=== PATIENT | female | born 1975 | race Caucasian/White ===

== ENCOUNTER 2017-05-30 22:00 | Emergency (ER) | payer MEDICAID ==
[~2017-05-30] VITALS: Ht 170.2 cm; Wt 74.8 kg
[~2017-05-30 22:00] MED LIST: ASCO-262 PO; CHOL200014 PO; CITA10TA7 PO; CLON1TAB3 PO; CPR500T PO; EST.625T PO; HCT25T PO; HYDR-757 PO; HYDR25CA5 PO; LACT10SO46 PO; LEVO5TAB12 PO; LINA290C PO; LORA1TAB PO; LOXA10CA PO; NAPR-243 PO; NAPR220C11 PO; OMEP40CA36 PO; POLY17PO23 PO; PRD20T PO; RANI300T4 PO; SENN8.6T7 PO; SIMV20TA3 PO; SULF1TAB35 PO; TRAM50TA2 PO; TRAZ150T42 PO; TRIM100T PO
--- OUTSIDE RECORDS SUMMARY | 2017-05-30 22:06 | XMS REPORT ---
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.00 Active Problem Major depressive disorder, recurrent episode, moderate 296.32 Active Problem Generalized anxiety disorder 300.02 Active Problem Encounter for long-term (current) use of other medications V58.69 Active Problem Unspecified disorder of skin and subcutaneous tissue 709.9 Active Problem 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 041.81 Active Problem Dysuria 788.1 Active Problem Unspecified constipation 564.00 Active Problem 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 Problem Viral warts, unspecified 078.10 Active Problem Herpes zoster without mention of complication 053.9 Active Problem Esophageal reflux 530.81 Active Problem Postmenopausal atrophic vaginitis 627.3 Active Problem Irritable bowel syndrome 564.1 Active Problem Unspecified backache 724.5 Active Problem Cervicalgia 723.1 Active Problem Unspecified psychosis 298.9 Active Problem Depressive disorder, not elsewhere classified 311 Active Problem Hallux valgus (acquired) 735.0 Active Problem Other chronic pain 338.29 Active Problem Hypertension 401.9 Active Problem Pain in joint, pelvic region and thigh 719.45 Active Problem Posttraumatic stress disorder 309.81 Active Problem Unspecified chronic bronchitis 491.9 Active Problem Unspecified hearing loss 389.9 Active Problem Attention deficit disorder of childhood with hyperactivity 314.01 Active Problem Counseling on substance use and abuse V65.42 Active Problem Disorder of bone and cartilage, unspecified 733.90 Active Problem Dysfunction of Eustachian tube 381.81 Active Problem Pain in joint, hand 719.44 Active Problem Paralytic ileus 560.1 Active Problem Anxiety state, unspecified 300.00 Active Problem Enthesopathy of hip region 726.5 Active Problem Other, multiple, and unspecified sites, insect bite, nonvenomous, without mention of infection 919.4 Active Problem Dermatophytosis of nail 110.1 Active Medications No Known Medications Results No Known Results Summary Purpose eClinicalWorks Submission
--- OUTSIDE RECORDS SUMMARY | 2017-05-30 22:06 | XMS REPORT ---
Author LEFTY Pyle Organization eClinicalWorks Address Unknown Phone Unavailable Care Team Providers Care Languages And Literature Instructor Name Role Phone LEFTY WAY CP Unavailable Allergies No Known Allergies Problems Problem Type Condition Code Onset Dates Condition Status Problem Gastroesophageal reflux disease with esophagitis K21.0 Active Problem Chronic constipation K59.00 Active Problem Essential hypertension I10 Active Problem Hemoptysis R04.2 Active Problem Right hip pain M25.551 Active Problem Upper respiratory infection, acute J06.9 Active Problem Sebaceous cyst L72.3 Active Problem Skin tag L91.8 Active Problem Left hip pain M25.552 Active Problem Allergic rhinitis J30.9 Active Problem Post menopausal syndrome Z78.0 Active Problem Verruca B07.9 Active Problem Tobacco dependence F17.200 Active Assessment Hypokalemia E87.6 Active Problem Mixed hyperlipidemia E78.2 Active Medications No Known Medications Results No Known Results Summary Purpose eClinicalWorks Submission
--- OUTSIDE RECORDS SUMMARY | 2017-05-30 22:06 | XMS REPORT | Clinical Summary ---
Author Author [facility] Organization [facility] Address Unknown Phone Unavailable Care Team Providers Care Coal Chute Worker Name Role Phone PCP Unavailable Source Comments Some departments are not documenting in the electronic medical record. If you do not see the information that you expected, contact Release of Information in the Health Information Management department at [phone] for further assistance in locating additional records.[facility] Allergies Active Allergy Reactions Severity Noted Date Comments Nitrofurantoin HIVES, RASH Medium 11/28/2014 Monohyd/M-Cryst Current Medications Prescription Sig. Disp. Refills Start End Date Status Date HYDROcodone/acetaminophen Take 1 Tab by mouth every Active (NORCO; VICODIN) 5-325 mg 4 hours as needed. tablet trimethoprim (TRIMPEX) Take 100 mg by mouth. Active 100 mg tablet amphetamine-dextroampheta Take 20 mg by mouth every Active mine XR (ADDERALL XR) 20 morning mg capsule estrogens, conjugated Take 0.625 mg by mouth Active (PREMARIN) 0.625 mg daily. tablet senna (SENOKOT) 8.6 mg Take 2 Tabs by mouth at Active tablet bedtime daily. lactulose 10 gram/15 mL Take 20 g by mouth as Active oral solution Needed. DULoxetine DR (CYMBALTA) Take 20 mg by mouth Active 20 mg capsule daily. hydrOXYzine (ATARAX) 25 Take 25 mg by mouth three Active mg tablet times daily as needed. levalbuterol (XOPENEX) Inhale 1.25 mg solution Active 1.25 mg/3 mL nebulizer as directed three times solution daily as needed. TENS unit electrodes pads Use as directed. Active tiZANidine (ZANAFLEX) 2 Take 2 mg by mouth three Active mg tablet times daily. docusate (COLACE) 100 mg Take 100 mg by mouth Active capsule twice daily. polyethylene glycol 3350 Take 17 g by mouth daily. Active (GLYCOLAX; MIRALAX) 17 gram/dose powder simvastatin (ZOCOR) 20 mg Take 20 mg by mouth at Active tablet bedtime daily. hydrochlorothiazide Take 12.5 mg by mouth Active (HYDRODIURIL) 12.5 mg daily. capsule indomethacin (INDOCIN) 25 Take 50 mg by mouth three Active mg capsule times daily. Levocetirizine (XYZAL) 5 Take by mouth. Active mg tab cholecalciferol (Vitamin Take 1,000 Units by mouth Active D3) (VITAMIN D-3) 1,[address] daily. units tablet omeprazole DR(+) Take 40 mg by mouth twice Active (PRILOSEC) 40 mg capsule daily. linaclotide (LINZESS) 290 Take 1 Cap by mouth 30 Cap 5 01/04/20 Active mcg cap daily. 15 Active Problems Problem Noted Date GERD (gastroesophageal reflux disease) 01/10/2015 S/P Rosa Elena fundoplication (without gastrostomy tube) procedure 01/10/2015 Slipped Rosa Elena fundoplication 01/10/2015 Social History Tobacco Use Types Packs/Day Years Used Date Former Smoker Alcohol Use Drinks/Week oz/Week Comments No Sex Assigned at Date Recorded Not on file Last Filed Vital Signs Vital Sign Reading Time Taken Blood Pressure 127/86 01/10/2015 2:23 PM CDT Pulse 96 01/10/2015 2:23 PM CDT Temperature 36.6 C (97.9 F) 01/10/2015 2:23 PM CDT Respiratory Rate 18 01/10/2015 2:23 PM CDT Oxygen Saturation 99% 12/29/2014 12:28 PM CDT Inhaled Oxygen - - Concentration Weight 72.6 kg (160 lb) 01/10/2015 2:23 PM CDT Height 170.2 cm (5' 7") 01/10/2015 2:23 PM CDT Body Mass Index 25.06 01/10/2015 2:23 PM CDT Plan of Treatment Health Maintenance Due Date Last Done Comments PHYSICAL (COMPREHENSIVE) 1980 EXAM PERTUSSIS VACCINE 1984 TETANUS VACCINE 1990 CERVICAL CANCER SCREENING 2003 BREAST CANCER SCREENING 2013 INFLUENZA VACCINE 05/23/2017 Results Not on filefrom Last 3 Months
--- OUTSIDE RECORDS SUMMARY | 2017-05-30 22:06 | XMS REPORT ---
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 Active Assessment Attention deficit disorder F90.0 Active Assessment Anxiety disorder, unspecified F41.9 Active Problem Essential hypertension I10 Active Problem Gastroesophageal reflux disease with esophagitis K21.0 Active Problem Chronic constipation K59.00 Active Problem Verruca B07.9 Active Problem Post menopausal syndrome Z78.0 Active Problem Mixed hyperlipidemia E78.2 Active Problem Tobacco dependence F17.200 Active Medications Medication Code System Code Instructions Start Date End Date Status Dosage Simvastatin [facility] [address]-91 20 MG Orally Once a day December 12, 2014 1 tablet by Oral route 1 time per day Xopenex [facility] [address]-29 1.25 mg/3 mL Oct 24, 2014 inhale 1 Vial by NEBULIZATION route every 8 hours PRN cough or wheezing Vitamin D3 [facility] 21677-[address]83 1,000 unit Jun 30, 2014 2 capsule by Oral route 1 time per day 2000 units daily Generlac [facility] [address]-58 10 GM/15ML Orally Once a day PRN severe constipation 15 ml Senna [facility] [address]-09 8.6 MG Nov 11, 2014 1 Tablet by Oral route 2 times per day Prilosec [facility] [address]-42 40 mg oral daily December 12, 2014 1 capsule by Oral route 1 time per day Trimethoprim [facility] [address]-97 100 mg March 24, 2012 1 Tablet by Oral route 1 time per day Cymbalta [facility] [address]-91 20 MG Orally Once a day Jul 21, 2015 1 capsule Clonazepam [facility] [address]-02 1 MG Orally 1/2 tablet in am and 1 tablet at bedtime as needed Oct 18, 2015 as directed Walker [facility] 0 Apr 27, 2014 CHRONIC PAIN LIMITING MOBILITY Adderall [facility] [address]-55 20 MG Orally 2 times a day for ADHD Dr Paul to sign for Slade December 05, 2014 1 tablet Hydrochlorothiazide [facility] [address]-07 12.5 MG Orally Once a day 1 capsule Xyzal [facility] [address]-87 5 MG Jul 14, 2014 1 Tablet by Oral route 1 time per day Procedures Procedure Coding System Code Date Office Visit, Est Pt., Level 3 CPT-4 42646 Oct 18, 2015 Vital Signs Date/Time: Oct 18, 2015 Cardiac Monitoring Heart Rate 104 bpm Weight 158.0 lbs Height 67 in BMI 24.74 Index Blood Pressure Diastolic 80 mmHg Blood Pressure Systolic 118 mmHg Results No Known Results Summary Purpose eClinicalWorks Submission
--- OUTSIDE RECORDS SUMMARY | 2017-05-30 22:07 | XMS REPORT ---
Author LEFTY Pyle Organization eClinicalWorks Address Unknown Phone Unavailable Care Team Providers Care Cost Recovery Technician Name Role Phone LEFTY WAY CP Unavailable Allergies No Known Allergies Problems Problem Type Condition Code Onset Dates Condition Status Problem Chronic constipation K59.00 Active Problem Sebaceous cyst L72.3 Active Problem Skin tag L91.8 Active Problem Closed displaced fracture of neck of right radius with mal union_ , subsequent encounter S52.131P Active Problem Upper respiratory infection, acute J06.9 Active Problem Tobacco abuse Z72.0 Active Problem Left hip pain M25.552 Active Problem Allergic rhinitis J30.9 Active Problem Hemoptysis R04.2 Active Problem Right hip pain M25.551 Active Problem Tobacco dependence F17.200 Active Problem Mixed hyperlipidemia E78.2 Active Problem Post menopausal syndrome Z78.0 Active Problem Gastroesophageal reflux disease with esophagitis K21.0 Active Problem Verruca B07.9 Active Problem Essential hypertension I10 Active Medications No Known Medications Results No Known Results Summary Purpose eClinicalWorks Submission
--- OUTSIDE RECORDS SUMMARY | 2017-05-30 22:07 | XMS REPORT ---
Author LEFTY Pyle Organization eClinicalWorks Address Unknown Phone Unavailable Care Team Providers Care Kiln Firer Name Role Phone LEFTY WAY CP Unavailable [...] Active Problem Essential hypertension I10 Active Medications Medication Code System Code Instructions Start Date End Date Status Dosage Simvastatin [facility] [address]-58 20 mg Orally Once a day 1 tablet by Oral route 1 time per day Xyzal [facility] [address]-89 5 mg oral daily Jul 14, 2014 1 Tablet Results No Known Results Summary Purpose eClinicalWorks Submission
--- OUTSIDE RECORDS SUMMARY | 2017-05-30 22:07 | XMS REPORT ---
Author Author LEFTY WAY [facility] eClinicalWorks Address Unknown Phone Unavailable Care Team Providers Care Foundation Director Name Role Phone LEFTY WAY CP Unavailable Allergies No Known Allergies Problems Problem Type Condition ICD-9 Code Onset Dates Condition Status Problem Attention [...] Problem Dermatophytosis of nail 110.1 Active Medications Medication Code System Code Instructions Start Date End Date Status Dosage Premarin [facility] [address]-13 0.625 MG remocean Appt needed for futher refills. Nov 11, 2014 1 tablet by Oral route 1 time per day Results No Known Results Summary Purpose eClinicalWorks Submission
--- OUTSIDE RECORDS SUMMARY | 2017-05-30 22:07 | XMS REPORT ---
Author LEFTY Pyle Organization eClinicalWorks Address Unknown Phone Unavailable Care Team Providers Care Product Marketing Analyst Name Role Phone LEFTY WAY CP Unavailable [...] Instructions Start Date End Date Status Dosage Zithromax Z-Octavio [facility] [address]-17 250 MG Orally Once a day Jul 08, 2016 Jul 13, 2016 2 tablets on the first day, then 1 tablet daily for 4 days Results No Known Results Summary Purpose eClinicalWorks Submission
--- OUTSIDE RECORDS SUMMARY | 2017-05-30 22:07 | XMS REPORT ---
Author Author LEFTY WAY Organization [facility] Address [address] [place] [address] Care Team Providers Care Owner Consulting Engineer Name Role Phone LEFTY WAY Unavailable PROBLEMS Type Condition ICD9-CM Code [id number] Code Onset Dates Condition Status SNOMED Code Problem Skin tag L91.8 Active 546909350 Problem Allergic rhinitis J30.9 Active 72054671 Problem Sebaceous cyst L72.3 Active 823910545 Problem Tobacco abuse Z72.0 Active 685326965 Problem Closed displaced fracture of neck of right radius with mal union_ , subsequent encounter S52.131P Active 60781992 Problem Right hip pain M25.551 Active 756141371766432 Problem Left hip pain M25.552 Active 72231373 Problem Upper respiratory infection, acute J06.9 Active 18903439 Problem Hemoptysis R04.2 Active 80934953 Problem Post menopausal syndrome Z78.0 Active 07595210 Problem Mixed hyperlipidemia E78.2 Active 185779205 Problem Gastroesophageal reflux disease with esophagitis K21.0 Active 817179440 Problem Verruca B07.9 Active 36157652 Problem Essential hypertension I10 Active 50001387 Problem Tobacco dependence F17.200 Active 33006928 Problem Chronic constipation K59.00 Active 147947862 ALLERGIES Unknown Allergies SOCIAL HISTORY No smoking Hx information available PLAN OF CARE VITAL SIGNS MEDICATIONS Unknown Medications RESULTS No Results PROCEDURES No Known procedures IMMUNIZATIONS No Known Immunizations
--- OUTSIDE RECORDS SUMMARY | 2017-05-30 22:07 | XMS REPORT ---
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 Active Problem Post menopausal syndrome Z78.0 Active Problem Verruca B07.9 Active Assessment Attention deficit disorder F90.0 Active Problem Tobacco dependence F17.200 Active Assessment Anxiety disorder, unspecified F41.9 Active Problem Mixed hyperlipidemia E78.2 Active Medications Medication Code System Code Instructions Start Date End Date Status Dosage Vitamin D3 [facility] [address]-85450 1,000 unit Jun 30, 2014 2 capsule by Oral route 1 time per day 2000 units daily Senna [facility] [address]-73 8.6 MG orally bid prn Nov 11, 2014 1 Tablet by Oral route 2 times per day prn Vitamin C & D3/Nini Hips [facility] [address]307 500-1000-20 MG-UNIT-MG Orally not defined Trimethoprim [facility] [address]-86 100 mg March 24, 2012 1 Tablet by Oral route 1 time per day Generlac [facility] [address]-62 10 GM/15ML Orally Once a day PRN severe constipation 15 ml Citalopram Hydrobromide [facility] [address]-84 10 MG Orally Once a day May 20, 2016 1 tablet Clonazepam [facility] [address]-76 1 MG Orally in am and 1 tablet at bedtime as needed Oct 18, 2015 1/2 tablet Xyzal [facility] [address]-71 5 MG oral daily Jul 14, 2014 1 Tablet Simvastatin [facility] [address]-60 20 MG Orally Once a day 1 tablet by Oral route 1 time per day Hydrochlorothiazide [facility] [address]-50 25 mg Orally Once a day 1 capsule Prilosec [facility] [address]-46 40 mg oral daily 1 capsule by Oral route 1 time per day Tizanidine HCl [facility] [address]-44 2 MG Orally every 8 hrs 1 tablet as needed Loxapine Succinate [facility] [address]-94 10 MG Orally once a day May 20, 2016 1 capsule Procedures Procedure Coding System Code Date MH Office Visit, Est Pt., Level 3 CPT-4 77949 May 20, 2016 Vital Signs Date/Time: May 20, 2016 Cardiac Monitoring Heart Rate 88 bpm Weight 156.2 lbs Height 67 in BMI 24.46 Index Blood Pressure Diastolic 82 mmHg Blood Pressure Systolic 127 mmHg Results No Known Results Summary Purpose eClinicalWorks Submission
--- OUTSIDE RECORDS SUMMARY | 2017-05-30 22:07 | XMS REPORT ---
Author Author ARNOLD ANDREA Organization eClinicalWorks Address Unknown Phone Unavailable Care Team Providers Care Dentistry Professor Name Role Phone ARNOLD ANDREA CP Unavailable Allergies No Known Allergies Problems Problem Type Condition Code Onset Dates Condition Status Problem Essential hypertension I10 Active Problem Gastroesophageal reflux disease with esophagitis K21.0 Active Problem Chronic constipation K59.00 Active Problem Verruca B07.9 Active Problem Post menopausal syndrome Z78.0 Active Problem Mixed hyperlipidemia E78.2 Active Problem Tobacco dependence F17.200 Active Medications Medication Code System Code Instructions Start Date End Date Status Dosage Adderall [facility] [address]-39 20 MG Orally 2 times a day for ADHD Dorothy to sign for Slade December 05, 2014 1 tablet Results No Known Results Summary Purpose eClinicalWorks Submission
--- OUTSIDE RECORDS SUMMARY | 2017-05-30 22:07 | XMS REPORT ---
Author Author LEFTY WAY [facility] eClinicalWorks Address Unknown Phone Unavailable Care Team Providers Care Automobile Spring Repairer Name Role Phone LEFTY WAY CP Unavailable [...] disorder of childhood with hyperactivity 314.01 Active Assessment Change in mental status 780.97 Active Problem Counseling on substance use and [...]
--- OUTSIDE RECORDS SUMMARY | 2017-05-30 22:07 | XMS REPORT ---
Author Author LEFTY WAY [facility] eClinicalWorks Address Unknown Phone Unavailable Care Team Providers Care Mall Manager Name Role Phone LEFTY WAY CP Unavailable Allergies, Adverse Reactions, Alerts Substance Reaction Event Type Zoloft nausea Drug Allergy Strattera hives, sleep walking Drug Allergy Macrobid hives Drug Allergy Problems Problem Type Condition Code Onset Dates Condition Status Assessment Gastroesophageal reflux disease with esophagitis K21.0 Active Assessment Chronic constipation K59.00 Active Assessment Essential hypertension I10 Active Problem Essential hypertension I10 Active Problem Gastroesophageal reflux disease with esophagitis K21.0 Active Problem Chronic constipation K59.00 Active Problem Verruca B07.9 Active Problem Post menopausal syndrome Z78.0 Active Problem Mixed hyperlipidemia E78.2 Active Problem Tobacco dependence F17.200 Active Assessment Post menopausal syndrome Z78.0 Active Assessment Verruca B07.9 Active Assessment Tobacco dependence F17.200 Active Assessment Hip pain, right M25.551 Active Assessment Mixed hyperlipidemia E78.2 Active Medications Medication Code System Code Instructions Start Date End Date Status Dosage Clonazepam [facility] [address]-40 1 MG Orally Twice a day Jul 21, 2015 1/ 2 tablet BL Nicotine ND 0 11 MG/24HR Transdermal Once a day Sep 06, 2015 as directed Colace [facility] [address]-05 100 mg Sep 21, 2014 1 capsule by Oral route 2 times per day PRN Xyzal [facility] [address]-14 5 MG Jul 14, 2014 1 Tablet by Oral route 1 time per day Senna [facility] [address]-62 8.6 mg Nov 11, 2014 1 Tablet by Oral route 2 times per day Walker [facility] 0 Apr 27, 2014 CHRONIC PAIN LIMITING MOBILITY Linzess [facility] [address]-50 290 MCG Orally Once a day Sep 16, 2015 1 capsule Prilosec [facility] [address]-22 40 mg oral daily December 12, 2014 1 capsule by Oral route 1 time per day Diclofenac Sodium [facility] [address]-65 75 MG Orally bid Sep 06, 2015 Nov 05, 2015 1 tablet Trimethoprim [facility] [address]-78 100 mg March 24, 2012 1 Tablet by Oral route 1 time per day Vitamin D3 [facility] 38809-[address]51 1,000 unit Jun 30, 2014 2 capsule by Oral route 1 time per day 2000 units daily Cymbalta [facility] [address]-79 20 MG Orally Once a day Jul 21, 2015 1 capsule Simvastatin [facility] [address]-50 20 MG Orally Once a day December 12, 2014 1 tablet by Oral route 1 time per day Hydrochlorothiazide [facility] [address]-00 12.5 MG Orally Once a day 1 capsule Procedures Procedure Coding System Code Date ASSAY THYROID STIM HORMONE CPT-4 24912 Sep 06, 2015 LIPID PANEL CPT-4 76901 Sep 06, 2015 COMPREHEN METABOLIC PANEL CPT-4 84452 Sep 06, 2015 CRYOTHERAPY OF SKIN CPT-4 34720 Sep 06, 2015 COMPLETE CBC W/AUTO DIFF WBC CPT-4 19368 Sep 06, 2015 VENIPUNCT, ROUTINE* CPT-4 68376 Sep 06, 2015 Office Visit, Est Pt., Level 4 CPT-4 33198 Sep 06, 2015 Vital Signs Date/Time: Sep 06, 2015 Temperature 97.7 F Weight 155.0 lbs Height 67 in BMI 24.27 Index Blood Pressure Diastolic 86 mmHg Blood Pressure Systolic 126 mmHg Cardiac Monitoring Heart Rate 76 bpm Results Name Result Date Reference Range Unit Abnormality Flag TSH ----TSH 2.040 [id number] 0.450-4.500 uIU/mL CBC ----Basos 1 14338542 % ----MCV 89 89438803 79-97 fL ----Hematocrit 42.2 34580560 34.0-46.6 % ----Eos 1 40366146 % ----MCHC 34.4 01196816 31.5-35.7 g/dL ----Monocytes 5 38974477 % ----MCH 30.7 42797251 26.6-33.0 pg ----Lymphs 29 19994620 % ----Eos (Absolute) 0.1 [id number] 0.0-0.4 x10E3/uL ----WBC 8.9 15789446 3.4-10.8 x10E3/uL ----Monocytes(Absolute) 0.4 09122009 0.1-0.9 x10E3/uL ----Lymphs (Absolute) 2.6 25215794 0.7-3.1 x10E3/uL ----Hemoglobin 14.5 79713405 11.1-15.9 g/dL ----Neutrophils (Absolute) 5.7 25712995 1.4-7.0 x10E3/uL ----RBC 4.72 75869944 3.77-5.28 x10E6/uL ----Immature Grans (Abs) 0.0 58523960 0.0-0.1 x10E3/uL ----Immature Granulocytes 0 67733847 % ----Neutrophils 64 60627192 % ----Baso (Absolute) 0.0 40296983 0.0-0.2 x10E3/uL ----RDW 13.8 67380578 12.3-15.4 % ----Platelets 235 34421342 150-379 x10E3/uL ROUTINE VENIPUNCTURE CRYOTHERAPY OF SKIN LIPID PANEL ----LDL Cholesterol Calc 186 50247509 0-99 mg/dL H ----VLDL Cholesterol Rashaun 30 40250288 5-40 mg/dL ----HDL Cholesterol 47 34080584 >39 mg/dL ----Triglycerides 150 48834184 0-149 mg/dL H ----Cholesterol, Total 263 76707047 100-199 mg/dL H CMP ----Creatinine, Serum 0.92 20150906 0.57-1.00 mg/dL ----BUN 12 51978426 6-24 mg/dL ----eGFR If Africn Am 89 67568692 >59 mL/min/1.73 ----eGFR If NonAfricn Am 77 09328791 >59 mL/min/1.73 ----Sodium, Serum 141 40462002 134-144 mmol/L ----BUN/Creatinine Ratio 13 20150906 9-23 ----Chloride, Serum 100 00528207 97-108 mmol/L ----Potassium, Serum 4.4 92266061 3.5-5.2 mmol/L ----Carbon Dioxide, Total 24 19913780 18-29 mmol/L ----Protein, Total, Serum 7.6 20150906 6.0-8.5 g/dL ----Calcium, Serum 9.9 20150906 8.7-10.2 mg/dL ----Globulin, Total 2.7 20150906 1.5-4.5 g/dL ----Albumin, Serum 4.9 20150906 3.5-5.5 g/dL ----Bilirubin, Total 0.5 20150906 0.0-1.2 mg/dL ----Glucose, Serum 98 20150906 65-99 mg/dL ----A/G Ratio 1.8 20150906 1.1-2.5 ----ALT (SGPT) 73 20150906 0-32 IU/L H ----Alkaline Phosphatase, S 113 87492021 39-117 IU/L ----AST (SGOT) 54 73723799 0-40 IU/L H Summary Purpose eClinicalWorks Submission
--- OUTSIDE RECORDS SUMMARY | 2017-05-30 22:07 | XMS REPORT ---
Author Author LEFTY WAY [facility] eClinicalWorks Address Unknown Phone Unavailable Care Team Providers Care Club Director Name Role Phone LEFTY WAY CP [...]
--- OUTSIDE RECORDS SUMMARY | 2017-05-30 22:08 | XMS REPORT ---
Author Author LEFTY WAY [facility] Address [address] [place] [address] Care Team Providers Care Bilingual Counter Sales Retail Name Role Phone LEFTY WAY Unavailable PROBLEMS Type Condition ICD9-CM Code [id number] Code Onset Dates Condition Status SNOMED Code Problem Hemoptysis R04.2 Active 77004683 Problem Closed displaced fracture of neck of right radius with mal union_ , subsequent encounter S52.131P Active 14449264 Problem Upper respiratory infection, acute J06.9 Active 59352488 Problem Abnormal liver enzymes R74.8 Active 852821734 Problem Verruca B07.9 Active 42521306 Problem Anxiety disorder, unspecified F41.9 Active 100206719 Problem Post menopausal syndrome Z78.0 Active 68608829 Problem Generalized anxiety disorder F41.1 Active 55954464 Problem Tobacco abuse Z72.0 Active 720766601 Problem Attention deficit disorder F90.0 Active 41093321 Problem 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 Active 41431373 Problem Gastroesophageal reflux disease with esophagitis K21.0 Active 255241266 Problem Essential hypertension I10 Active 21716231 Problem Tobacco dependence F17.200 Active 29391062 Problem Mixed hyperlipidemia E78.2 Active 126121667 Problem Sebaceous cyst L72.3 Active 525031496 Problem Allergic rhinitis J30.9 Active 64154494 Problem Chronic constipation K59.00 Active 340597902 Problem Left hip pain M25.552 Active 70625582 Problem Skin tag L91.8 Active 765911632 Problem Right hip pain M25.551 Active [id number] ALLERGIES Substance Reaction Event Type Date Status Zoloft nausea Drug Allergy Aug, Active Strattera hives, sleep walking Drug Allergy Aug, Active PredniSONE hives Drug Allergy Aug, Active Macrobid hives Drug Allergy Aug, Active SOCIAL HISTORY No smoking Hx information available PLAN OF CARE Activity Details Follow Up 6 Months Reason:med fu VITAL SIGNS Height 67 in 2016-09-04 Weight 159.4 lbs 2016-09-04 Temperature 98.2 degrees Fahrenheit 2016-09-04 Heart Rate 82 bpm 2016-09-04 Respiratory Rate 20 2016-09-04 BMI 24.96 kg/m2 2016-09-04 Blood pressure systolic 112 mmHg 2016-09-04 Blood pressure diastolic 82 mmHg 2016-09-04 MEDICATIONS Medication Instructions Dosage Frequency Start Date End Date Duration Status Vitamin C & D3/Nini Hips 500-1000-20 MG-UNIT-MG Active Hydrochlorothiazide 12.5 MG Orally Once a day 1 capsule 24h Active Generlac 10 GM/15ML Orally Once a day PRN severe constipation 15 ml Active Linzess 290 MCG Orally Once a day 1 capsule 24h Active Simvastatin 20 mg Orally Once a day 1 tablet by Oral route 1 time per day 24h Active Clonazepam 1 MG Orally 0.5 tablet in am and 1 tablet at bedtime 1 tablet Sep, 30 days Active Citalopram Hydrobromide 10 MG Orally Once a day 1 tablet 24h Apr, 30 days Active Senexon 8.6 MG Orally 2 times a day 2 tablets as needed 12h Active Zyrtec Allergy 10 mg Orally Once a day 1 tablet 24h Jul, 30 day (s) Active Hair Skin and Nails Formula - Active Prilosec 40 mg oral daily 1 capsule by Oral route 1 time per day 24h Active Joint/Bone Vitality Active Vitamin D3 1,000 unit 2 capsule by Oral route 1 time per day 2000 units daily Jun, Active Cetirizine HCl 10 mg Orally Once a day 1 tablet 24h Aug, Active Xyzal 5 MG Orally Once a day 1 tablet in the evening 24h Active RESULTS Name Result Date Reference Range MAGNESIUM, SERUM 2016-09-04 Magnesium, Serum 2.0 1.6-2.3 CBC 2016-09-04 WBC 6.7 3.4-10.8 RBC 4.59 3.77-5.28 Hemoglobin 14.6 11.1-15.9 Hematocrit 40.5 34.0-46.6 MCV 88 79-97 MCH 31.8 26.6-33.0 MCHC 36.0 31.5-35.7 RDW 13.2 12.3-15.4 Platelets 235 150-379 Neutrophils 51 Lymphs 41 Monocytes 6 Eos 2 Basos 0 Immature Cells Neutrophils (Absolute) 3.5 1.4-7.0 Lymphs (Absolute) 2.7 0.7-3.1 Monocytes(Absolute) 0.4 0.1-0.9 Eos (Absolute) 0.1 0.0-0.4 Baso (Absolute) 0.0 0.0-0.2 Immature Granulocytes 0 Immature Grans (Abs) 0.0 0.0-0.1 NRBC Hematology Comments: LIPID PANEL 2016-09-04 Cholesterol, Total 185 100-199 Triglycerides 154 0-149 HDL Cholesterol 36 >39 VLDL Cholesterol Rashaun 31 5-40 LDL Cholesterol Calc 118 0-99 CMP 2016-09-04 Glucose, Serum 82 65-99 BUN 6 6-24 Creatinine, Serum 0.75 0.57-1.00 eGFR If NonAfricn Am 98 >59 eGFR If Africn Am 113 >59 BUN/Creatinine Ratio 8 9-23 Sodium, Serum 133 134-144 Potassium, Serum 4.1 3.5-5.2 Chloride, Serum 95 96-106 Carbon Dioxide, Total 23 18-29 Calcium, Serum 9.7 8.7-10.2 Protein, Total, Serum 7.2 6.0-8.5 Albumin, Serum 4.7 3.5-5.5 Globulin, Total 2.5 1.5-4.5 A/G Ratio 1.9 1.1-2.5 Bilirubin, Total 0.4 0.0-1.2 Alkaline Phosphatase, S 173 39-117 AST (SGOT) 66 0-40 ALT (SGPT) 98 0-32 PROCEDURES Procedure Date Ordered Related Diagnosis Body Site LAB NOT BILLED BY [facility] Sep 04, 2016 Office Visit, Est Pt., Level 4 Sep 04, 2016 VENIPUNCT, ROUTINE* Sep 04, 2016 IMMUNIZATIONS No Known Immunizations
--- OUTSIDE RECORDS SUMMARY | 2017-05-30 22:08 | XMS REPORT ---
Author Author ARNOLD ANDREA [facility] eClinicalWorks Address Unknown Phone Unavailable Care Team Providers Care Credit And Collections Representative Name Role Phone ARNOLD ANDREA CP Unavailable [...] Start Date End Date Status Dosage Adderall [facility] [address]-71 20 MG Orally 2 times a day for ADHD Omi to sign for Slade December 05, 2014 1 tablet Results No Known Results Summary Purpose eClinicalWorks Submission
--- OUTSIDE RECORDS SUMMARY | 2017-05-30 22:08 | XMS REPORT ---
Author Author LEFTY WAY [facility] Address [address] [place] [address] Care Team Providers Care Oil Well Directional Surveyor Name Role Phone LEFTY WAY Unavailable PROBLEMS Type Condition ICD9-CM Code [id number] Code Onset Dates Condition Status SNOMED Code Problem Upper respiratory infection, acute J06.9 Active 61225436 Problem Tobacco abuse Z72.0 Active 844047693 Problem Left hip pain M25.552 Active 50956833 Problem Abnormal liver enzymes R74.8 Active 978249269 Problem Verruca B07.9 Active 49735233 Problem Anxiety disorder, unspecified F41.9 Active 689197395 Problem Tobacco dependence F17.200 Active 70962979 Problem 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 Active 33722004 Problem Closed displaced fracture of neck of right radius with mal union_ , subsequent encounter S52.131P Active 17484099 Problem Generalized anxiety disorder F41.1 Active 63203919 Problem Attention deficit disorder F90.0 Active 23559943 Problem Chronic constipation K59.00 Active 793838704 Problem Essential hypertension I10 Active 07834422 Problem Post menopausal syndrome Z78.0 Active 85471424 Problem Gastroesophageal reflux disease with esophagitis K21.0 Active 866375919 Problem Allergic rhinitis J30.9 Active 37019962 Problem Skin tag L91.8 Active 697713074 Problem Mixed hyperlipidemia E78.2 Active 254240847 Problem Hemoptysis R04.2 Active 01664240 Problem Sebaceous cyst L72.3 Active 428560175 Problem Right hip pain M25.551 Active [id number] ALLERGIES Unknown Allergies SOCIAL HISTORY No smoking Hx information available PLAN OF CARE VITAL SIGNS MEDICATIONS Unknown Medications RESULTS Name Result Date Reference Range CBC 2016-10-08 WBC 6.9 3.4-10.8 RBC 4.52 3.77-5.28 Hemoglobin 14.1 11.1-15.9 Hematocrit 40.2 34.0-46.6 MCV 89 79-97 MCH 31.2 26.6-33.0 MCHC 35.1 31.5-35.7 RDW 13.3 12.3-15.4 Platelets 233 150-379 Neutrophils 56 Lymphs 38 Monocytes 4 Eos 2 Basos 0 Neutrophils (Absolute) 3.9 1.4-7.0 Lymphs (Absolute) 2.6 0.7-3.1 Monocytes(Absolute) 0.3 0.1-0.9 Eos (Absolute) 0.1 0.0-0.4 Baso (Absolute) 0.0 0.0-0.2 Immature Granulocytes 0 Immature Grans (Abs) 0.0 0.0-0.1 VITAMIN D, 25-H 2016-10-08 Vitamin D, 25-Hydroxy 45.8 30.0-100.0 PROCEDURES Procedure Date Ordered Related Diagnosis Body Site VENIPUNCT, ROUTINE* Oct 08, 2016 LAB NOT BILLED BY [facility] Oct 08, 2016 IMMUNIZATIONS No Known Immunizations
--- OUTSIDE RECORDS SUMMARY | 2017-05-30 22:08 | XMS REPORT ---
Author Author LEFTY WAY [facility] eClinicalWorks Address Unknown Phone Unavailable Care Team Providers Care Batch Maker Name Role Phone LEFTY WAY CP Unavailable [...] Active Problem Allergic rhinitis J30.9 Active Assessment Left hip pain M25.552 Active Problem Post menopausal syndrome Z78.0 Active Problem Verruca B07.9 Active Assessment Hemoptysis R04.2 Active Problem Tobacco dependence F17.200 Active Assessment Upper respiratory infection, acute J06.9 Active Problem Mixed hyperlipidemia E78.2 Active Medications Medication Code System Code Instructions Start Date End Date Status Dosage Tizanidine HCl [facility] [address]-28 2 MG Orally every 8 hrs 1 tablet as needed Doxycycline Hyclate [facility] [address]-02 100 MG Orally every 12 hrs April 04, 2016 April 14, 2016 1 capsule Cymbalta [facility] [address]-24 20 MG Orally Once a day Jul 21, 2015 1 capsule Hydrochlorothiazide [facility] [address]-22 25 mg Orally Once a day 1 capsule Clonazepam [facility] [address]-39 1 MG Orally 1/2 tablet in am and 1 tablet at bedtime as needed Oct 18, 2015 as directed Vitamin C & D3/Nini Hips [facility] 395[address] 500-1000-20 MG-UNIT-MG Orally not defined Trimethoprim [facility] [address]-65 100 mg March 24, 2012 1 Tablet by Oral route 1 time per day Simvastatin [facility] [address]-55 20 MG Orally Once a day 1 tablet by Oral route 1 time per day Xyzal [facility] [address]-54 5 MG oral daily Jul 14, 2014 1 Tablet Pushpa De La Cruz [facility] [address]-24 100 MG Orally Three times a day April 04, 2016 April 14, 2016 1 capsule as needed Senna [facility] [address]-11 8.6 MG orally bid prn Nov 11, 2014 1 Tablet by Oral route 2 times per day prn Vitamin D3 [facility] [address] 1,000 unit Jun 30, 2014 2 capsule by Oral route 1 time per day 2000 units daily Prilosec [facility] [address]-72 40 mg oral daily 1 capsule by Oral route 1 time per day Generlac [facility] [address]-15 10 GM/15ML Orally Once a day PRN severe constipation 15 ml Procedures Procedure Coding System Code Date Office Visit, Est Pt., Level 4 CPT-4 55852 April 04, 2016 X-RAY EXAM HIP UNI 2-3 VIEWS CPT-4 55919 April 04, 2016 CHEST X-RAY CPT-4 20975 April 04, 2016 Vital Signs Date/Time: April 04, 2016 Cardiac Monitoring Heart Rate 102 bpm Weight 160.5 lbs Height 67 in Blood Pressure Diastolic 68 mmHg Blood Pressure Systolic 106 mmHg Results No Known Results Summary Purpose eClinicalWorks Submission
--- OUTSIDE RECORDS SUMMARY | 2017-05-30 22:08 | XMS REPORT ---
Author Author ARNOLD ANDREA [facility] Address Unknown Care Team Providers Care Endoscopy Tech Name Role Phone ARNOLD ANDREA Unavailable PROBLEMS Type Condition ICD9-CM Code [id number] Code Onset Dates Condition Status SNOMED Code Problem Hemoptysis R04.2 Active 31536208 Problem Closed displaced fracture of neck of right radius with mal union_ , subsequent encounter S52.131P Active 73076661 Problem Upper respiratory infection, acute J06.9 Active 97558813 Problem Abnormal liver enzymes R74.8 Active 488907220 Problem Verruca B07.9 Active 35366440 Problem Anxiety disorder, unspecified F41.9 Active 270194545 Problem Post menopausal syndrome Z78.0 Active 64389251 Problem Generalized anxiety disorder F41.1 Active 30602776 Problem Tobacco abuse Z72.0 Active 274647050 Problem Attention deficit disorder F90.0 Active 70295554 Problem 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 Active 54510643 Problem Gastroesophageal reflux disease with esophagitis K21.0 Active 772457384 Problem Essential hypertension I10 Active 43543081 Problem Tobacco dependence F17.200 Active 48048586 Problem Mixed hyperlipidemia E78.2 Active 739577140 Problem Sebaceous cyst L72.3 Active 832048078 Problem Allergic rhinitis J30.9 Active 01694952 Problem Chronic constipation K59.00 Active 872089264 Problem Left hip pain M25.552 Active 65350883 Problem Skin tag L91.8 Active 463389067 Problem Right hip pain M25.551 Active 290447073220598 ALLERGIES Unknown Allergies SOCIAL HISTORY No smoking Hx information available PLAN OF CARE Activity Details Follow Up 3 Months Reason: VITAL SIGNS Height 67 in 2016-08-28 Weight 155 lbs 2016-08-28 Heart Rate 88 bpm 2016-08-28 Respiratory Rate 20 2016-08-28 BMI 24.27 kg/m2 2016-08-28 Blood pressure systolic 120 mmHg 2016-08-28 Blood pressure diastolic 68 mmHg 2016-08-28 MEDICATIONS Medication Instructions Dosage Frequency Start Date End Date Duration Status Linzess 290 MCG Orally Once a day 1 capsule 24h Active Prilosec 40 mg oral daily 1 capsule by Oral route 1 time per day 24h Active [place] 10-325 MG Orally tid prn 1 tablet as needed May, 28 Active Vitamin C & D3/Nini Hips 500-1000-20 MG-UNIT-MG Active Citalopram Hydrobromide 10 MG Orally Once a day 1 tablet 24h Apr, 30 days Active Clonazepam 1 MG Orally 0.5 tablet in am and 1 tablet at bedtime 1 tablet Sep, 30 days Active Generlac 10 GM/15ML Orally Once a day PRN severe constipation 15 ml Active Joint/Bone Vitality Active Hydrochlorothiazide 12.5 MG Orally Once a day 1 capsule 24h Active Zyrtec Allergy 10 mg Orally Once a day 1 tablet 24h Jul, 30 day (s) Active Vitamin D3 1,000 unit 2 capsule by Oral route 1 time per day 2000 units daily Jun, Active Hair Skin and Nails Formula - Active Simvastatin 20 mg Orally Once a day 1 tablet by Oral route 1 time per day 24h Active RESULTS No Results PROCEDURES Procedure Date Ordered Related Diagnosis Body Site MH Office Visit, Est Pt., Level 3 Aug 28, 2016 IMMUNIZATIONS No Known Immunizations
--- OUTSIDE RECORDS SUMMARY | 2017-05-30 22:08 | XMS REPORT ---
Author Author LEFTY WAY [facility] eClinicalWorks Address Unknown Phone Unavailable Care Team Providers Care Job Tracer Name Role Phone LEFTY WAY CP Unavailable Allergies, Adverse Reactions, Alerts Substance Reaction Event Type Zoloft nausea Drug Allergy Strattera hives, sleep walking Drug Allergy Macrobid hives Drug Allergy Problems Problem Type Condition ICD-9 Code Onset [...] of childhood with hyperactivity 314.01 Active Assessment Other chronic pain 338.29 Active Problem Counseling on substance use and abuse V65.42 Active Problem Disorder of bone and cartilage, unspecified 733.90 Active Problem Dysfunction of Eustachian tube 381.81 Active Assessment Screening breast examination V76.10 Active Problem Pain in joint, hand 719.44 Active Assessment Lumbar back pain 724.2 Active Problem Paralytic ileus 560.1 Active Problem Anxiety state, unspecified 300.00 Active Assessment Post menopausal syndrome V49.81 Active Problem Enthesopathy of hip region 726.5 Active Problem Other, multiple, and unspecified sites, insect bite, nonvenomous, without mention of infection 919.4 Active Problem Dermatophytosis of nail 110.1 Active Medications Medication Code System Code Instructions Start Date End Date Status Dosage Colace [facility] [address]-38 100 mg Sep 21, 2014 1 capsule by Oral route 2 times per day PRN Hydrochlorothiazide [facility] [address]-62 12.5 MG Orally Once a day 1 capsule Xyzal [facility] [address]-04 5 MG Jul 14, 2014 1 Tablet by Oral route 1 time per day Clonazepam [facility] [address]-63 1 MG Orally once a day March 29, 2015 1 tablet Trimethoprim [facility] [address]-11 100 mg March 24, 2012 1 Tablet by Oral route 1 time per day Generlac [facility] [address]-73 10 GM/15ML Orally Once a day PRN severe constipation 15 ml Senna [facility] [address]-25 8.6 mg Nov 11, 2014 1 Tablet by Oral route 2 times per day Walker [facility] 0 Apr 27, 2014 CHRONIC PAIN LIMITING MOBILITY Simvastatin [facility] [address]-49 20 MG 1 TAB orally once a day (at bedtime) December 12, 2014 1 tablet by Oral route 1 time per day Premarin [facility] [address]-26 0.625 MG GreenGar Finario Appt needed for futher refills. Nov 11, 2014 1 tablet by Oral route 1 time per day Adderall [facility] [address]-00 20 MG Orally 2 times a day for ADHD December 05, 2014 1 tablet Xopenex [facility] [address]-76 1.25 mg/3 mL Oct 24, 2014 inhale 1 Vial by NEBULIZATION route every 8 hours PRN cough or wheezing Prilosec [facility] [address]-63 40 mg December 12, 2014 1 capsule by Oral route 1 time per day HydrOXYzine HCl [facility] [address]-30 50 MG Orally every 6 hrs March 29, 2015 1 tablet as needed Linzess [facility] [address]-16 290 MCG Orally Once a day Sep 16, 2015 1 capsule Hydrocodone-Acetaminophen [facility] [address]-79 5-325 MG Orally 2 times a day prn Apr 27, 2015 May 27, 2015 1/2-1 tablet as needed Cymbalta [facility] [address]-52 20 MG Orally Once a day Nov 09, 2014 1 capsule by Oral route 1 time per day Procedures Procedure Coding System Code Date Office Visit, Est Pt., Level 4 CPT-4 03429 May 31, 2015 No Charge CPT-4 90912 May 31, 2015 Vital Signs Date/Time: May 31, 2015 Temperature 98.3 F Weight 147.4 lbs Height 67 in BMI 23.08 Index Blood Pressure Diastolic 76 mmHg Blood Pressure Systolic 122 mmHg Cardiac Monitoring Heart Rate 90 bpm Results No Known Results Summary Purpose eClinicalWorks Submission
--- OUTSIDE RECORDS SUMMARY | 2017-05-30 22:08 | XMS REPORT ---
Author Author LEFTY WAY Organization eClinicalWorks Address Unknown Phone Unavailable Care Team Providers Care Wood Window And Door Craftsman Name Role Phone LEFTY WAY CP Unavailable Allergies No Known Allergies Problems Problem Type Condition Code Onset Dates Condition Status Problem Essential hypertension I10 Active Problem Gastroesophageal reflux disease with esophagitis K21.0 Active Problem Chronic constipation K59.00 Active Problem Verruca B07.9 Active Problem Post menopausal syndrome Z78.0 Active Problem Mixed hyperlipidemia E78.2 Active Problem Tobacco dependence F17.200 Active Medications No Known Medications Results No Known Results Summary Purpose eClinicalWorks Submission
--- OUTSIDE RECORDS SUMMARY | 2017-05-30 22:08 | XMS REPORT ---
Author Author HOMER WILKINS [facility] Address [address] [place] [address] Care Team Providers Care Post Office Markup Clerk Name Role Phone HOMER WILKINS Unavailable PROBLEMS Type Condition ICD9-CM Code [id number] Code Onset Dates Condition Status SNOMED Code Problem Essential hypertension I10 Active 96783452 Problem Skin tag L91.8 Active 398768653 Problem Chronic constipation K59.00 Active 033957199 Problem Upper respiratory infection, acute J06.9 Active 05407924 Problem Hemoptysis R04.2 Active 15543876 Problem Allergic rhinitis J30.9 Active 24838796 Problem Sebaceous cyst L72.3 Active 020756711 Problem Right hip pain M25.551 Active 419101518791872 Problem Left hip pain M25.552 Active 55509634 Problem Verruca B07.9 Active 91381004 Problem Tobacco dependence F17.200 Active 00187507 Problem Mixed hyperlipidemia E78.2 Active 695018941 Problem Post menopausal syndrome Z78.0 Active 79963160 Problem Gastroesophageal reflux disease with esophagitis K21.0 Active 391254884 ALLERGIES Unknown Allergies SOCIAL HISTORY No smoking Hx information available PLAN OF CARE VITAL SIGNS MEDICATIONS Medication Instructions Dosage Frequency Start Date End Date Duration Status Xyzal 5 MG oral daily 1 Tablet 24h Jun, Active Vitamin D3 1,000 unit 2 capsule by Oral route 1 time per day 2000 units daily Jun, Active Prilosec 40 mg oral daily 1 capsule by Oral route 1 time per day 24h Active Generlac 10 GM/15ML Orally Once a day PRN severe constipation 15 ml Active Loxapine Succinate 10 MG Orally once a day 1 capsule 24h Apr, 30 day(s) Active Hydrochlorothiazide 25 mg Orally Once a day 1 capsule 24h 30 days Active Simvastatin 20 MG Orally Once a day 1 tablet by Oral route 1 time per day 24h Active Aleve 220 MG Active Linzess 290 MCG Orally Once a day 1 capsule 24h Active Vitamin C & D3/Nini Hips 500-1000-20 MG-UNIT-MG Active Clonazepam 1 MG Orally in am and 1 tablet at bedtime as needed 1/2 tablet Sep, Active Citalopram Hydrobromide 10 MG Orally Once a day 1 tablet 24h Apr, 30 day(s) Active RESULTS No Results PROCEDURES No Known procedures IMMUNIZATIONS No Known Immunizations
--- OUTSIDE RECORDS SUMMARY | 2017-05-30 22:08 | XMS REPORT ---
Author Author LEFTY WAY Organization [facility] Address [address] [place] [address] Care Team Providers Care Hydramatic Specialist Name Role Phone LEFTY WAY Unavailable PROBLEMS Type Condition ICD9-CM Code [id number] Code Onset Dates Condition Status SNOMED Code Problem Skin tag L91.8 Active 337509318 Problem Allergic rhinitis J30.9 Active 42524524 Problem Sebaceous cyst L72.3 Active 733936332 Problem Tobacco abuse Z72.0 Active 085204868 Problem Closed displaced fracture of neck of right radius with mal union_ , subsequent encounter S52.131P Active 45287213 Problem Right hip pain M25.551 Active 966744413782948 Problem Left hip pain M25.552 Active 93163561 Problem Upper respiratory infection, acute J06.9 Active 52939312 Problem Hemoptysis R04.2 Active 59086713 Problem Post menopausal syndrome Z78.0 Active 31700680 Problem Mixed hyperlipidemia E78.2 Active 713278923 Problem Gastroesophageal reflux disease with esophagitis K21.0 Active 180155118 Problem Verruca B07.9 Active 58447293 Problem Essential hypertension I10 Active 78306193 Problem Tobacco dependence F17.200 Active 04391568 Problem Chronic constipation K59.00 Active 636460619 ALLERGIES Unknown Allergies SOCIAL HISTORY No smoking Hx information available PLAN OF CARE VITAL SIGNS MEDICATIONS Unknown Medications RESULTS No Results PROCEDURES No Known procedures IMMUNIZATIONS No Known Immunizations
--- OUTSIDE RECORDS SUMMARY | 2017-05-30 22:09 | XMS REPORT ---
Author Author DEVON RIVAS Organization [employer] Address Unknown Phone Unavailable Care Team Providers Care Auto Body Repairman Name Role Phone DEVON RIVAS CP Unavailable Allergies No Known Allergies Problems [...]
--- OUTSIDE RECORDS SUMMARY | 2017-05-30 22:09 | XMS REPORT ---
Author Author LEFTY WAY [facility] Address [address] [place] [address] Care Team Providers Care Oyster Grader Name Role Phone LEFTY WAY Unavailable PROBLEMS Type Condition ICD9-CM Code [id number]-JE Code Onset Dates Condition Status SNOMED Code Problem Upper respiratory infection, acute J06.9 Active 27160940 Problem Tobacco abuse Z72.0 Active 169114398 Problem Left hip pain M25.552 Active 63904167 Problem Abnormal liver enzymes R74.8 Active 645371912 Problem Verruca B07.9 Active 45191872 Problem Anxiety disorder, unspecified F41.9 Active 415967212 Problem Tobacco dependence F17.200 Active 12738684 Problem 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 Active 71162416 Problem Closed displaced fracture of neck of right radius with mal union_ , subsequent encounter S52.131P Active 92784327 Problem Generalized anxiety disorder F41.1 Active 61127042 Problem Attention deficit disorder F90.0 Active 98777515 Problem Chronic constipation K59.00 Active 047481344 Problem Essential hypertension I10 Active 17244058 Problem Post menopausal syndrome Z78.0 Active 13585051 Problem Gastroesophageal reflux disease with esophagitis K21.0 Active 851197219 Problem Allergic rhinitis J30.9 Active 92438340 Problem Skin tag L91.8 Active 077711879 Problem Mixed hyperlipidemia E78.2 Active 325911911 Problem Hemoptysis R04.2 Active 21153840 Problem Sebaceous cyst L72.3 Active 653274588 Problem Right hip pain M25.551 Active [id number] ALLERGIES Substance Reaction Event Type Date Status Zoloft nausea Drug Allergy Sep, Active Strattera hives, sleep walking Drug Allergy Sep, Active PredniSONE hives Drug Allergy Sep, Active Macrobid hives Drug Allergy Sep, Active SOCIAL HISTORY No smoking Hx information available PLAN OF CARE Activity Details Follow Up 3 Months Reason:chol VITAL SIGNS Height 67 in 2016-10-10 Weight 156.3 lbs 2016-10-10 Temperature 97.8 degrees Fahrenheit 2016-10-10 Heart Rate 86 bpm 2016-10-10 Respiratory Rate 20 2016-10-10 BMI 24.48 kg/m2 2016-10-10 Blood pressure systolic 112 mmHg 2016-10-10 Blood pressure diastolic 78 mmHg 2016-10-10 MEDICATIONS Medication Instructions Dosage Frequency Start Date End Date Duration Status Generlac 10 GM/15ML Orally Once a day PRN severe constipation 15 ml Active Clonazepam 1 MG Orally 0.5 tablet in am and 1 tablet at bedtime 1 tablet Sep, 30 days Active Joint/Bone Vitality Active Linzess 290 MCG Orally Once a day 1 capsule 24h Active Hydrochlorothiazide 12.5 MG Orally Once a day 1 capsule 24h Active Xyzal 5 MG Orally Once a day 1 tablet in the evening 24h Active Simvastatin 20 mg Orally every other day 1 tablet by Oral route 1 time per day Active Senexon 8.6 MG Orally 2 times a day 2 tablets as needed 12h Active Hair Skin and Nails Formula - Active Zyrtec Allergy 10 mg Orally Once a day 1 tablet 24h Jul, 30 day (s) Active Prilosec 40 mg oral daily 1 capsule by Oral route 1 time per day 24h Active Cetirizine HCl 10 mg Orally Once a day 1 tablet 24h Active Vitamin D3 1,000 unit 2 capsule by Oral route 1 time per day 2000 units daily Jun, Active Nicotine 21 MG/24HR Transdermal Once a day 1 patch to skin 24h Nov, 30 days Active Citalopram Hydrobromide 10 MG Orally Once a day 1 tablet 24h Apr, 30 days Active Vitamin C & D3/Nini Hips 500-1000-20 MG-UNIT-MG Active Trimethoprim 100 MG Oral every other day (Prior Auth: Rx Ref#:[id number]) Active RESULTS Name Result Date Reference Range CMP 2016-10-10 Glucose, Serum 79 65-99 BUN 8 6-24 Creatinine, Serum 0.77 0.57-1.00 eGFR If NonAfricn Am 95 >59 eGFR If Africn Am 109 >59 BUN/Creatinine Ratio 10 9-23 Sodium, Serum 139 134-144 Potassium, Serum 3.7 3.5-5.2 Chloride, Serum 96 96-106 Carbon Dioxide, Total 26 18-29 Calcium, Serum 9.6 8.7-10.2 Protein, Total, Serum 7.2 6.0-8.5 Albumin, Serum 4.6 3.5-5.5 Globulin, Total 2.6 1.5-4.5 A/G Ratio 1.8 1.1-2.5 Bilirubin, Total 0.5 0.0-1.2 Alkaline Phosphatase, S 113 39-117 AST (SGOT) 35 0-40 ALT (SGPT) 45 0-32 HEPATITIS PROFILE 2016-10-10 Hep A Ab, IgM Negative Negative HBsAg Screen Negative Negative Hep B Core Ab, IgM Negative Negative Hep C Virus Ab <0.1 0.0-0.9 PROCEDURES Procedure Date Ordered Related Diagnosis Body [facility], [facility] Office Visit, Est Pt., Level 4 Oct 10, 2016 VENIPUNCT, ROUTINE* Oct 10, 2016 IMMUNIZATIONS Vaccine Route Administration Date Status FLUARIX QUAD P-FREE 3 AND UP .50 2015 Unknown Oct 10, 2016 Administered
--- OUTSIDE RECORDS SUMMARY | 2017-05-30 22:09 | XMS REPORT ---
Author LEFTY Pyle Organization [employer] Address Unknown Phone Unavailable Care Team Providers Care Wax Coating Machine Tender Name Role Phone LEFTY WAY CP Unavailable [...]
--- OUTSIDE RECORDS SUMMARY | 2017-05-30 22:09 | XMS REPORT ---
Author Author LEFTY WAY [facility] [employer] Address Unknown Phone Unavailable Care Team Providers Care Leather Colorer Name Role Phone LEFTY WAY CP Unavailable Allergies, Adverse Reactions, Alerts Substance Reaction Event Type Zoloft nausea Drug Allergy Strattera hives, sleep walking Drug Allergy PredniSONE hives Drug Allergy Macrobid hives Drug Allergy Problems Problem Type Condition Code Onset Dates Condition Status Problem Post menopausal syndrome Z78.0 Active Problem Tobacco dependence F17.200 Active Problem Verruca B07.9 Active Assessment Left hip pain M25.552 Active Problem Sebaceous cyst L72.3 Active Problem Skin tag L91.8 Active Problem Allergic rhinitis J30.9 Active Problem Gastroesophageal reflux disease with esophagitis K21.0 Active Problem Mixed hyperlipidemia E78.2 Active Problem Chronic constipation K59.00 Active Problem Essential hypertension I10 Active Medications Medication Code System Code Instructions Start Date End Date Status Dosage Clonazepam [facility] [address]-74 1 MG Orally 1/2 tablet in am and 1 tablet at bedtime as needed Oct 18, 2015 as directed Cymbalta [facility] [address]-22 20 MG Orally Once a day Jul 21, 2015 1 capsule Senna [facility] [address]-51 8.6 MG orally bid prn Nov 11, 2014 1 Tablet by Oral route 2 times per day prn Simvastatin [facility] [address]-43 20 MG Orally Once a day 1 tablet by Oral route 1 time per day BL Nicotine ND 0 11 MG/24HR Transdermal Once a day Sep 06, 2015 as directed Vitamin D3 [facility] [address] 1,000 unit Jun 30, 2014 2 capsule by Oral route 1 time per day 2000 units daily Tramadol HCl [facility] [address]-26 50 MG Orally every 6 hrs January 09, 2016 1 tablet as needed Tizanidine HCl [facility] [address]-55 2 MG Orally every 8 hrs 1 tablet as needed Hydrochlorothiazide [facility] [address]-71 25 mg Orally Once a day 1 capsule Xopenex [facility] [address]-21 1.25 mg/3 mL Oct 24, 2014 inhale 1 Vial by NEBULIZATION route every 8 hours PRN cough or wheezing Trimethoprim [facility] [address]-64 100 mg March 24, 2012 1 Tablet by Oral route 1 time per day Aleve [facility] [address]-50 220 MG Orally not defined Vitamin C & D3/Nini Hips [facility] [address] 500-1000-20 MG-UNIT-MG Orally not defined Walker [facility] 0 Apr 27, 2014 CHRONIC PAIN LIMITING MOBILITY Generlac [facility] [address]-85 10 GM/15ML Orally Once a day PRN severe constipation 15 ml Prilosec [facility] [address]-46 40 mg oral daily 1 capsule by Oral route 1 time per day Xyzal [facility] [address]-69 5 MG oral daily Jul 14, 2014 1 Tablet Procedures Procedure Coding System Code Date TORADOL (IM) 15 MG/ML (UP TO 15 MG) CPT-4 J1885 January 02, 2016 THER/PROPH/DIAG INJ, SC/IM CPT-4 16482 January 02, 2016 Office Visit, Est Pt., Level 3 CPT-4 84714 January 02, 2016 Vital Signs Date/Time: January 02, 2016 Temperature 98.6 F Weight 155.5 lbs Height 67 in BMI 24.35 Index Blood Pressure Diastolic 64 mmHg Blood Pressure Systolic 106 mmHg Cardiac Monitoring Heart Rate 78 bpm Results No Known Results Summary Purpose [employer] Submission
--- OUTSIDE RECORDS SUMMARY | 2017-05-30 22:09 | XMS REPORT ---
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 Active Problem Counseling on substance use and abuse V65.42 Active Problem Disorder of bone and cartilage, unspecified 733.90 Active Problem Dysfunction of Eustachian tube 381.81 Active Assessment Attention deficit disorder F90.0 Active Problem Pain in joint, hand 719.44 Active Assessment Anxiety disorder, unspecified F41.9 Active Problem Paralytic ileus 560.1 Active Problem Anxiety state, unspecified 300.00 Active Problem Enthesopathy of hip region 726.5 Active Problem Other, multiple, and unspecified sites, insect bite, nonvenomous, without mention of infection 919.4 Active Problem Dermatophytosis of nail 110.1 Active Medications Medication Code System Code Instructions Start Date End Date Status Dosage Simvastatin [facility] [address]-42 20 MG 1 TAB orally once a day (at bedtime) December 12, 2014 1 tablet by Oral route 1 time per day Colace [facility] [address]-94 100 mg Sep 21, 2014 1 capsule by Oral route 2 times per day PRN Senna [facility] [address]-46 8.6 mg Nov 11, 2014 1 Tablet by Oral route 2 times per day Prilosec [facility] [address]-55 40 mg December 12, 2014 1 capsule by Oral route 1 time per day Cymbalta [facility] [address]-40 20 MG Orally Once a day Jul 21, 2015 1 capsule Trimethoprim [facility] [address]-02 100 mg March 24, 2012 1 Tablet by Oral route 1 time per day Walker [facility] 0 Apr 27, 2014 CHRONIC PAIN LIMITING MOBILITY Vitamin D3 [facility] [address]42 1,000 unit Jun 30, 2014 2 capsule by Oral route 1 time per day 2000 units daily Xyzal [facility] [address]-83 5 MG Jul 14, 2014 1 Tablet by Oral route 1 time per day Clonazepam [facility] [address]-66 1 MG Orally Twice a day Jul 21, 2015 1/ 2 tablet Hydrochlorothiazide [facility] [address]-01 12.5 MG Orally Once a day 1 capsule Linzess [facility] [address]-80 290 MCG Orally Once a day Sep 16, 2015 1 capsule Procedures Procedure Coding System Code Date Office Visit, Ivan Pt., Level 3 CPT-4 25041 Jul 21, 2015 Vital Signs Date/Time: Jul 21, 2015 Cardiac Monitoring Heart Rate 64 bpm Weight 154.2 lbs Height 67 in BMI 24.15 Index Blood Pressure Diastolic 86 mmHg Blood Pressure Systolic 126 mmHg Results No Known Results Summary Purpose [employer] Submission
--- OUTSIDE RECORDS SUMMARY | 2017-05-30 22:09 | XMS REPORT ---
Author LEFTY Pyle Organization [employer] Address Unknown Phone Unavailable Care Team Providers Care Food Scientist Name Role Phone LEFTY WAY CP Unavailable [...] Instructions Start Date End Date Status Dosage Diflucan [facility] [address]-08 150 MG Orally now and repeat dose in three days Jul 09, 2016 1 tablet Results No Known Results Summary Purpose [employer] Submission
--- OUTSIDE RECORDS SUMMARY | 2017-05-30 22:09 | XMS REPORT ---
Author ARNOLD Kim Organization [employer] Address Unknown Phone Unavailable Care Team Providers Care Tool And Die Manager Name Role Phone ARNOLD ANDREA CP Unavailable [...] B07.9 Active Problem Tobacco dependence F17.200 Active Problem Mixed hyperlipidemia E78.2 Active Medications No Known Medications Results No Known Results Summary Purpose [employer] Submission
--- OUTSIDE RECORDS SUMMARY | 2017-05-30 22:09 | XMS REPORT ---
Author ARNOLD Kim Organization [employer] Address Unknown Phone Unavailable Care Team Providers Care Licensed [place] Real Estate Appraiser Name Role Phone ARNOLD ANDREA CP Unavailable [...] Start Date End Date Status Dosage Clonazepam [facility] [address]-61 1 MG Orally in am and 1 tablet at bedtime as needed Oct 18, 2015 1/2 tablet Results No Known Results Summary Purpose [employer] Submission
--- OUTSIDE RECORDS SUMMARY | 2017-05-30 22:10 | XMS REPORT ---
Author Author LEFTY WAY Organization [facility] Address [address] [place] [address] Care Team Providers Care Wind Turbine Engineer Name Role Phone LEFTY WAY Unavailable PROBLEMS Type Condition ICD9-CM Code FYL91-KT Code Onset Dates Condition Status SNOMED Code Problem Upper respiratory infection, acute J06.9 Active 88405401 Problem Tobacco abuse Z72.0 Active 427529250 Problem Left hip pain M25.552 Active 19747172 Problem Abnormal liver enzymes R74.8 Active 544665569 Problem Verruca B07.9 Active 87556773 Problem Anxiety disorder, unspecified F41.9 Active 125235755 Problem Tobacco dependence F17.200 Active 02957996 Problem 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 Active 42068444 Problem Closed displaced fracture of neck of right radius with mal union_ , subsequent encounter S52.131P Active 12991457 Problem Generalized anxiety disorder F41.1 Active 29513003 Problem Attention deficit disorder F90.0 Active 59425129 Problem Chronic constipation K59.00 Active 681796197 Problem Essential hypertension I10 Active 36025084 Problem Post menopausal syndrome Z78.0 Active 03252211 Problem Gastroesophageal reflux disease with esophagitis K21.0 Active 859055493 Problem Allergic rhinitis J30.9 Active 51627171 Problem Skin tag L91.8 Active 631200597 Problem Mixed hyperlipidemia E78.2 Active 520285817 Problem Hemoptysis R04.2 Active 90177603 Problem Sebaceous cyst L72.3 Active 687065551 Problem Right hip pain M25.551 Active 799008975253057 ALLERGIES Unknown Allergies SOCIAL HISTORY No smoking Hx information available PLAN OF CARE VITAL SIGNS MEDICATIONS Unknown Medications RESULTS No Results PROCEDURES No Known procedures IMMUNIZATIONS No Known Immunizations
--- OUTSIDE RECORDS SUMMARY | 2017-05-30 22:10 | XMS REPORT ---
Author Author LEFTY WAY Organization [employer] Address Unknown Phone Unavailable Care Team Providers Care Chain Hoist Operator Name Role Phone LEFTY WAY CP Unavailable [...] Instructions Start Date End Date Status Dosage Senna [facility] [address]-07 8.6 MG Nov 11, 2014 1 Tablet by Oral route 2 times per day Results No Known Results Summary Purpose [employer] Submission
--- OUTSIDE RECORDS SUMMARY | 2017-05-30 22:10 | XMS REPORT ---
Author Author ARNOLD ANDREA Organization [employer] Address Unknown Phone Unavailable Care Team Providers Care Soil Checker Name Role Phone ARNOLD ANDREA CP Unavailable [...] Start Date End Date Status Dosage Adderall [facility] [address]-22 20 MG Orally 2 times a day for ADHD Dr Paul to sign for [place] December 05, 2014 1 tablet Results No Known Results Summary Purpose [employer] Submission
--- OUTSIDE RECORDS SUMMARY | 2017-05-30 22:10 | XMS REPORT ---
Author AURELIANO Coles [facility] [employer] Address Unknown Phone Unavailable Care Team Providers Care Cupola Man Name Role Phone AURELIANO SHIN CP Unavailable Allergies, Adverse Reactions, Alerts Substance [...] of childhood with hyperactivity 314.01 Active Assessment Cellulitis of unspecified part of limb L03.119 Active Problem Counseling on substance use and [...] Instructions Start Date End Date Status Dosage Trimethoprim [facility] [address]-73 100 mg March 24, 2012 1 Tablet by Oral route 1 time per day Linzess [facility] [address]-98 290 MCG Orally Once a day Sep 16, 2015 1 capsule Colace [facility] [address]-29 100 mg Sep 21, 2014 1 capsule by Oral route 2 times per day PRN Walker [facility] 0 Apr 27, 2014 CHRONIC PAIN LIMITING MOBILITY Sulfamethoxazole-TMP DS [facility] [address]-38 800-160 MG Orally 2 times a day Jul 21, 2015 Jul 26, 2015 1 tablet Cymbalta [facility] [address]-88 20 MG Orally Once a day Jul 21, 2015 1 capsule Vitamin D3 [facility] [address] 1,000 unit Jun 30, 2014 2 capsule by Oral route 1 time per day 2000 units daily Hydrochlorothiazide [facility] [address]-60 12.5 MG Orally Once a day 1 capsule Prilosec [facility] [address]-42 40 mg December 12, 2014 1 capsule by Oral route 1 time per day Clonazepam [facility] [address]-34 1 MG Orally Twice a day Jul 21, 2015 1/ 2 tablet Xyzal [facility] [address]-26 5 MG Jul 14, 2014 1 Tablet by Oral route 1 time per day Simvastatin [facility] [address]-69 20 MG 1 TAB orally once a day (at bedtime) December 12, 2014 1 tablet by Oral route 1 time per day Senna [facility] [address]-69 8.6 mg Nov 11, 2014 1 Tablet by Oral route 2 times per day Procedures Procedure Coding System Code Date X-RAY EXAM OF ANKLE CPT-4 36629 Jul 21, 2015 Office Visit, Est Pt., Level 3 CPT-4 44371 Jul 21, 2015 Vital Signs Date/Time: Jul 21, 2015 Temperature 98.2 F Weight 254.2 lbs Height 67 in BMI 39.81 Index Blood Pressure Diastolic 84 mmHg Blood Pressure Systolic 128 mmHg Cardiac Monitoring Heart Rate 66 bpm Results No Known Results Summary Purpose [employer] Submission
--- OUTSIDE RECORDS SUMMARY | 2017-05-30 22:10 | XMS REPORT ---
Author Author ARNOLD ANDREA Organization [employer] Address Unknown Phone Unavailable Care Team Providers Care Boiler Or Engine Operator Name Role Phone ARNOLD ANDREA CP Unavailable Allergies No Known Allergies Problems Problem Type Condition Code Onset Dates Condition Status Problem Post menopausal syndrome Z78.0 Active Problem Tobacco dependence F17.200 Active Problem Verruca B07.9 Active Problem Sebaceous cyst L72.3 Active Problem Skin tag L91.8 Active Problem Allergic rhinitis J30.9 Active Problem Gastroesophageal reflux disease with esophagitis K21.0 Active Problem Mixed hyperlipidemia E78.2 Active Problem Chronic constipation K59.00 Active Problem Essential hypertension I10 Active Medications Medication Code System Code Instructions Start Date End Date Status Dosage Clonazepam [facility] [address]-57 1 MG Orally 1/2 tablet in am and 1 tablet at bedtime as needed Oct 18, 2015 as directed Results No Known Results Summary Purpose [employer] Submission
--- OUTSIDE RECORDS SUMMARY | 2017-05-30 22:10 | XMS REPORT ---
Author LORI Horan Organization [employer] Address Unknown Phone Unavailable Care Team Providers Care Moveman Name Role Phone LORI DUCKWORTH CP Unavailable Allergies, Adverse Reactions, Alerts Substance [...] Active Problem Tobacco dependence F17.200 Active Assessment Rash R21 Active Problem Mixed hyperlipidemia E78.2 Active Medications Medication Code System Code Instructions Start Date End Date Status Dosage Cymbalta [facility] [address]-19 20 MG Orally Once a day Jul 21, [address] [facility] [address]-71 40 mg oral daily 1 capsule by Oral route 1 time per day Hydrochlorothiazide [facility] [address]-32 25 mg Orally Once a day [address] [facility] [address]-19 100 mg March 24, 2012 1 Tablet by Oral route 1 time per day Bactrim DS [facility] [address]-28 800-160 MG Orally Twice a day May 20, 2016 May 25, [address] [facility] [address]-40 2 MG Orally every 8 hrs 1 tablet as needed Vitamin D3 [facility] [address]234 1,000 unit Jun 30, 2014 2 capsule by Oral route 1 time per day [address] [facility] [address]-01 20 MG Orally Once a day 1 tablet by Oral route 1 time per day [address] [facility] [address]-03 5 MG oral daily Jul 14, [address] [facility] [address]-01 8.6 MG orally bid prn Nov 11, 2014 1 Tablet by Oral route 2 times per day prn Clonazepam [facility] [address]-44 1 MG Orally 1/2 tablet in am and 1 tablet at bedtime as needed Oct 18, 2015 as directed Vitamin C & D3/Nini Hips [facility] [address]3491 500-1000-20 MG-UNIT-MG Orally not defined [facility] [address]-44 10 GM/15ML Orally Once a day PRN severe constipation 15 ml Procedures Procedure Coding System Code Date Office Visit, Est Pt., Level 3 CPT-4 73468 May 20, 2016 Vital Signs Date/Time: May 20, 2016 Cardiac Monitoring Heart Rate 80 bpm Weight 157.8 lbs Height 67 in BMI 24.71 Index Blood Pressure Diastolic 74 mmHg Blood Pressure Systolic 110 mmHg Results No Known Results Summary Purpose [employer]ClinicalWorks Submission
--- OUTSIDE RECORDS SUMMARY | 2017-05-30 22:10 | XMS REPORT ---
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 Active Problem Post menopausal syndrome Z78.0 Active Problem Verruca B07.9 Active Assessment Attention deficit disorder F90.0 Active Problem Tobacco dependence F17.200 Active Assessment Anxiety disorder, unspecified F41.9 Active Problem Mixed hyperlipidemia E78.2 Active Medications Medication Code System Code Instructions Start Date End Date Status Dosage Clonazepam [facility] [address]-14 1 MG Orally in am and 1 tablet at bedtime as needed Oct 18, 2015 1/2 tablet Simvastatin [facility] [address]-21 20 MG Orally Once a day 1 tablet by Oral route 1 time per day Prilosec [facility] [address]-36 40 mg oral daily 1 capsule by Oral route 1 time per day Hydrocodone-Acetaminophen [facility] [address]-36 7.5-325 MG Orally every 6 hrs 1 tablet as needed Hair Skin and Nails Formula [facility] 76603-[address]86 - Orally not defined Vitamin C & D3/Nini Hips [facility] 75[address]009 500-1000-20 MG-UNIT-MG Orally not defined Vitamin D3 [facility] [address]642-[address]93 1,000 unit Jun 30, 2014 2 capsule by Oral route 1 time per day 2000 units daily Joint/Bone Vitality NDC 0 not defined Hydrochlorothiazide [facility] [address]-48 12.5 MG Orally Once a day 1 capsule Loxapine Succinate [facility] [address]-69 10 MG Orally once a day May 20, 2016 1 capsule Citalopram Hydrobromide [facility] [address]-34 10 MG Orally Once a day May 20, 2016 1 tablet Linzess [facility] [address]-77 290 MCG Orally Once a day 1 capsule Xyzal [facility] [address]-34 5 MG oral daily Jul 14, 2014 1 Tablet Generlac [facility] [address]-05 10 GM/15ML Orally Once a day PRN severe constipation 15 ml Aleve [facility] [address]-24 220 MG Orally not defined Procedures Procedure Coding System Code Date MH Office Visit, Est Pt., Level 3 CPT-4 21707 Jun 19, 2016 Vital Signs Date/Time: Jun 19, 2016 Cardiac Monitoring Heart Rate 132 bpm Weight 159.0 lbs Height 67 in BMI 24.90 Index Blood Pressure Diastolic 90 mmHg Blood Pressure Systolic 125 mmHg Results No Known Results Summary Purpose [employer]ClinicalWorks Submission
--- OUTSIDE RECORDS SUMMARY | 2017-05-30 22:10 | XMS REPORT ---
Author LEFTY Pyle Organization [employer] Address Unknown Phone Unavailable Care Team Providers Care Groundskeeper Porter Name Role Phone LEFTY WAY CP Unavailable [...] Instructions Start Date End Date Status Dosage Zyrtec Allergy [facility] [address]-97 10 mg Orally Once a day Aug 12, 2016 1 tablet Results No Known Results Summary Purpose [employer]ClinicalWorks Submission
--- OUTSIDE RECORDS SUMMARY | 2017-05-30 22:11 | XMS REPORT ---
Author LEFTY Pyle Organization [employer] Address Unknown Phone Unavailable Care Team Providers Care Team Lead Name Role Phone LEFTY WAY CP Unavailable [...] Instructions Start Date End Date Status Dosage Prilosec [facility] [address]-29 40 mg oral daily 1 capsule by Oral route 1 time per day Results No Known Results Summary Purpose eClinicalWorks Submission
--- OUTSIDE RECORDS SUMMARY | 2017-05-30 22:11 | XMS REPORT ---
Author Author LEFTY WAY Organization [facility] Address [address] [place] [address] Care Team Providers Care Business Objects Name Role Phone LEFTY WAY Unavailable PROBLEMS Type Condition ICD9-CM Code FDW67-RS Code Onset Dates Condition Status SNOMED Code Problem Skin tag L91.8 Active 478102653 Problem Allergic rhinitis J30.9 Active 51358838 Problem Sebaceous cyst L72.3 Active 192184937 Problem Tobacco abuse Z72.0 Active 342853954 Problem Closed displaced fracture of neck of right radius with mal union_ , subsequent encounter S52.131P Active 03801136 Problem Right hip pain M25.551 Active 557594525255500 Problem Left hip pain M25.552 Active 30421391 Problem Upper respiratory infection, acute J06.9 Active 71009477 Problem Hemoptysis R04.2 Active 67932233 Problem Post menopausal syndrome Z78.0 Active 32486392 Problem Mixed hyperlipidemia E78.2 Active 396449926 Problem Gastroesophageal reflux disease with esophagitis K21.0 Active 183066725 Problem Verruca B07.9 Active 15843439 Problem Essential hypertension I10 Active 29074170 Problem Tobacco dependence F17.200 Active 66343856 Problem Chronic constipation K59.00 Active 677014203 ALLERGIES Unknown Allergies SOCIAL HISTORY No smoking Hx information available PLAN OF CARE VITAL SIGNS MEDICATIONS Medication Instructions Dosage Frequency Start Date End Date Duration Status Hydrochlorothiazide 12.5 MG Orally Once a day 1 capsule 24h Active RESULTS No Results PROCEDURES No Known procedures IMMUNIZATIONS No Known Immunizations
--- OUTSIDE RECORDS SUMMARY | 2017-05-30 22:11 | XMS REPORT ---
Author LEFTY yPle [facility] eClinicalWorks Address Unknown Phone Unavailable Care Team Providers Care Offal Worker Name Role Phone LEFTY WAY CP Unavailable [...] Active Problem Right hip pain M25.551 Active Assessment Closed displaced fracture of neck of right radius with mal union_ , subsequent encounter S52.131P Active Assessment Tobacco abuse Z72.0 Active Problem Tobacco dependence F17.200 Active Problem Mixed hyperlipidemia E78.2 Active Problem Post menopausal syndrome Z78.0 Active Problem Gastroesophageal reflux disease with esophagitis K21.0 Active Problem Verruca B07.9 Active Problem Essential hypertension I10 Active Medications Medication Code System Code Instructions Start Date End Date Status Dosage Vitamin C & D3/Nini Hips [facility] 288[address]79 500-1000-20 MG-UNIT-MG Orally not defined Vitamin D3 [facility] 30[address]68 1,000 unit Jun 30, 2014 2 capsule by Oral route 1 time per day 2000 units daily Linzess [facility] [address]-15 290 MCG Orally Once a day 1 capsule Clonazepam [facility] [address]-13 1 MG Orally in am and 1 tablet at bedtime as needed Oct 18, 2015 1/2 tablet Hydrocodone-Acetaminophen [facility] [address]-77 7.5-325 MG Orally every 6 hrs 1 tablet as needed Simvastatin [facility] [address]-86 20 MG Orally Once a day 1 tablet by Oral route 1 time per day Citalopram Hydrobromide [facility] [address]-07 10 MG Orally Once a day May 20, 2016 1 tablet Prilosec [facility] [address]-82 40 mg oral daily 1 capsule by Oral route 1 time per day Hale [facility] [address]-16 10-325 MG Orally tid prn Jun 20, 2016 1 tablet as needed Hair Skin and Nails Formula [facility] 54436-[address]64 - Orally not defined Loxapine Succinate [facility] [address]-76 10 MG Orally once a day May 20, 2016 1 capsule Generlac [facility] [address]-71 10 GM/15ML Orally Once a day PRN severe constipation 15 ml Nicotine [facility] [address]-51 21 MG/24HR Transdermal Once a day Jun 20, 2016 Jul 20, 2016 1 patch to skin Hydrochlorothiazide [facility] [address]-24 12.5 MG Orally Once a day 1 capsule Xyzal [facility] [address]-91 5 MG oral daily Jul 14, 2014 1 Tablet Aleve [facility] [address]-88 220 MG Orally not defined Joint/Bone Vitality ND 0 not defined Procedures Procedure Coding System Code Date Office Visit, Est Pt., Level 4 CPT-4 72826 Jun 20, 2016 Vital Signs Date/Time: Jun 20, 2016 Cardiac Monitoring Heart Rate 124 bpm Weight 158.9 lbs Height 67 in BMI 24.88 Index Blood Pressure Diastolic 83 mmHg Blood Pressure Systolic 134 mmHg Results No Known Results Summary Purpose eClinicalWorks Submission
--- OUTSIDE RECORDS SUMMARY | 2017-05-30 22:11 | XMS REPORT ---
Author CLARE Dawn [facility] [employer] Address Unknown Phone Unavailable Care Team Providers Care Lead Assistant Manager Name Role Phone CLARE PATEL CP Unavailable Allergies, Adverse Reactions, Alerts Substance [...] of childhood with hyperactivity 314.01 Active Assessment Acute otitis media, left H66.92 Active Problem Counseling on substance use and [...] Instructions Start Date End Date Status Dosage Generlac [facility] [address]-95 10 GM/15ML Orally Once a day PRN severe constipation 15 ml Clonazepam [facility] [address]-40 1 MG Orally once a day March 29, 2015 1 tablet Trimethoprim [facility] [address]-07 100 mg March 24, 2012 1 Tablet by Oral route 1 time per day Vhiuuaqz-Mwbdil-IU-Thonzonium [facility] [address]-59 3.3-3-10-0.5 MG/ML Otic 4 times a day Jun 30, 2015 2 drops into affected ear Vitamin D3 [facility] [address]151 1,000 unit Jun 30, 2014 2 capsule by Oral route 1 time per day 2000 units daily HydrOXYzine HCl [facility] [address]-27 50 MG Orally every 6 hrs March 29, 2015 1 tablet as needed Colace [facility] [address]-70 100 mg Sep 21, 2014 1 capsule by Oral route 2 times per day PRN Senna [facility] [address]-98 8.6 mg Nov 11, 2014 1 Tablet by Oral route 2 times per day Linzess [facility] [address]-61 290 MCG Orally Once a day Sep 16, 2015 1 capsule Walker [facility] 0 Apr 27, 2014 CHRONIC PAIN LIMITING MOBILITY Hydrochlorothiazide [facility] [address]-95 12.5 MG Orally Once a day 1 capsule Adderall [facility] [address]-79 20 MG Orally 2 times a day for ADHD Omi to sign for Slade December 05, 2014 1 tablet Simvastatin [facility] [address]-81 20 MG 1 TAB orally once a day (at bedtime) December 12, 2014 1 tablet by Oral route 1 time per day Prilosec [facility] [address]-75 40 mg December 12, 2014 1 capsule by Oral route 1 time per day Cymbalta [facility] [address]-80 20 MG Orally Once a day Nov 09, 2014 1 capsule by Oral route 1 time per day Xyzal [facility] [address]-98 5 MG Jul 14, 2014 1 Tablet by Oral route 1 time per day Procedures Procedure Coding System Code Date Office Visit, Est Pt., Level 3 CPT-4 94416 Jun 30, 2015 Vital Signs Date/Time: Jun 30, 2015 Temperature 98.1 F Weight 148.8 lbs Height 67 in BMI 23.30 Index Blood Pressure Diastolic 88 mmHg Blood Pressure Systolic 126 mmHg Cardiac Monitoring Heart Rate 120 bpm Results No Known Results Summary Purpose eClinicalWorks Submission
--- OUTSIDE RECORDS SUMMARY | 2017-05-30 22:12 | XMS REPORT ---
Author LEFTY Pyle [facility] eClinicalWorks Address Unknown Phone Unavailable Care Team Providers Care Chief Security And Safety Officer Name Role Phone LEFTY WAY CP Unavailable [...] Problem Right hip pain M25.551 Active Assessment Acute non-recurrent maxillary sinusitis J01.00 Active Problem Tobacco dependence F17.200 Active Problem Mixed hyperlipidemia E78.2 Active Problem Post menopausal syndrome Z78.0 Active Problem Gastroesophageal reflux disease with esophagitis K21.0 Active Problem Verruca B07.9 Active Problem Essential hypertension I10 Active Medications Medication Code System Code Instructions Start Date End Date Status Dosage Simvastatin [facility] [address]-74 20 MG Orally Once a day 1 tablet by Oral route 1 time per day Vitamin D3 [facility] [address]16 1,000 unit Jun 30, 2014 2 capsule by Oral route 1 time per day 2000 units daily Nicotine [facility] [address]-55 21 MG/24HR Transdermal Once a day Jun 20, 2016 Jul 20, 2016 1 patch to skin Joint/Bone Vitality NDC 0 not defined Clonazepam [facility] [address]-01 1 MG Orally in am and 1 tablet at bedtime as needed Oct 18, 2015 1/2 tablet Prilosec [facility] [address]-08 40 mg oral daily 1 capsule by Oral route 1 time per day Augmentin [facility] [address]-91 875-125 MG Orally every 12 hrs Jun 26, 2016 Jul 06, 2016 1 tablet [place] [facility] [address]-96 10-325 MG Orally tid prn Jun 20, 2016 1 tablet as needed Hydrochlorothiazide [facility] [address]-75 12.5 MG Orally Once a day 1 capsule Linzess [facility] [address]-10 290 MCG Orally Once a day 1 capsule Vitamin C & D3/Nini Hips [facility] [address]79-[address]653 500-1000-20 MG-UNIT-MG Orally not defined Tessalon Perles [facility] [address]-06 100 MG Orally Three times a day Jun 26, 2016 Jul 10, 2016 1 capsule as needed Hair Skin and Nails Formula [facility] [address]659 - Orally not defined Citalopram Hydrobromide [facility] [address]-02 10 MG Orally Once a day May 20, 2016 1 tablet Generlac [facility] [address]-78 10 GM/15ML Orally Once a day PRN severe constipation 15 ml Xyzal [facility] [address]-86 5 MG oral daily Jul 14, 2014 1 Tablet Loxapine Succinate [facility] [address]-86 10 MG Orally once a day May 20, 2016 1 capsule Procedures Procedure Coding System Code Date ROCEPHIN 1 GM (IM) CPT-4 J0696 Jun 26, 2016 THER/PROPH/DIAG INJ, SC/IM CPT-4 59539 Jun 26, 2016 Office Visit, Est Pt., Level 3 CPT-4 61479 Jun 26, 2016 Vital Signs Date/Time: Jun 26, 2016 Cardiac Monitoring Heart Rate 92 bpm Weight 160.0 lbs Height 67 in BMI 25.06 Index Blood Pressure Diastolic 78 mmHg Blood Pressure Systolic 124 mmHg Results No Known Results Summary Purpose eClinicalWorks Submission
--- NOTE | 2017-05-30 22:22 | ED Chest Pain ---
General Chief Complaint: Chest Pain Stated Complaint: CP/ANXIETY Source: patient Exam Limitations: no limitations History of Present Illness Time seen by provider: 22:19 Initial Comments Patient was in a verbal altercation with some friends today and she says this triggered a panic attack. But then she started having chest pains. Chest pains are described as mid chest substernal aching feeling. She's never had chest pain for panic attacks in the past. She is a clonazepam of the chest pain persisted even after the panic attack subsided. She has no short of breath cough , nausea, vomiting, diarrhea, rash, abdominal pain, numbness or tingling. She has no previous coronary history. She does have a history of blood pressure and smokes half pack a day. She says she has a mom who of a heart attack at age 60. She had her last missed her period when she was 26 status post hysterectomy. Allergies and Home Medications Allergies Coded Allergies: atomoxetine (Verified Allergy, Severe, HIVES, SLEEP WALKING, 05/15/16) prednisone (Verified Allergy, Severe, HIVES, 05/15/16) nitrofurantoin (Unverified Allergy, Mild, RASH, 10/13/10) sertraline (Verified Adverse Reaction, Severe, NAUSEA, 05/15/16) Home Medications Cetirizine HCl 10 Mg Tablet, 10 MG PO DAILY, (Reported) Cholecalciferol (Vitamin D3) 2,000 Unit Tablet, 2,000 UNIT PO DAILY, (Reported) Citalopram Hydrobromide 10 Mg Tablet, 10 MG PO DAILY, (Reported) Clonazepam 1 Mg Tablet, 1 MG PO HS, (Reported) Clonazepam 1 Mg Tablet, 0.5 PO DAILY, (Reported) Hydrochlorothiazide 12.5 Mg Capsule, 12.5 MG PO DAILY, (Reported) Lactulose 10 Gm/15 Ml Solution, 15 ML PO DAILY, (Reported) Levocetirizine Dihydrochloride 5 Mg Tablet, 5 MG PO DAILY, (Reported) Linaclotide 290 Mcg Capsule, 290 MCG PO DAILY, (Reported) Omeprazole 40 Mg Capsule.dr, 40 MG PO DAILY, #30 (Reported) Sennosides 8.6 Mg Tablet, 17.2 MG PO BID, (Reported) Simvastatin 20 Mg Tablet, 20 MG PO DAILY, (Reported) Trimethoprim 100 Mg Tablet, 100 MG PO EVERY OTHER DAY, (Reported) Review of Systems Constitutional: No chills, No diaphoresis, No fever, No malaise EENTM: No Eye Pain, No Ear Pain Respiratory: Denies Cough, Denies Shortness of Air Cardiovascular: See HPI, Chest Pain (mid chest substernal) Gastrointestinal: Denies Abdomen Distended, Denies Abdominal Pain, Denies Constipated, Denies Diarrhea, Denies Nausea Genitourinary: Denies Burning, Denies Discharge Musculoskeletal: No back pain, No joint pain Skin: No pruritus, No rash Psychiatric/Neurological: Denies Headache, Denies Numbness, Denies Paresthesia Past [id number]-[id number]-Tzgvoa Hx Patient Social History Alcohol Use: Regular Use Alcohol Beverage of Choice: Beer Recreational Drug Use: No Smoking Status: Current Everyday Smoker (0.5 ppd) Type Used: Cigarettes Recent Foreign Travel: No Contact w/Someone Who Travel: No Recent Hopitalizations: No Immunizations Up To Date Tetanus Booster (TDap): Unknown Seasonal Allergies Seasonal Allergies: No Surgeries Surgeries: Gallbladder, Hysterectomy Respiratory Respiratory Disorders: Chronic Bronchitis Currently Using CPAP: No Currently Using BIPAP: No Cardiovascular Cardiac Disorders: Hypertension Reproductive System Hx Reproductive Disorders: No LOGISTICS DIRECTOR History: Hysterectomy Genitourinary Genitourinary Disorders: UTI-Chronic Gastrointestinal Gastrointestinal Disorders: Gastroesophageal Reflux, Chronic Constipation, Hiatal Hernia, Irritable Bowel Musculoskeletal Musculoskeletal Disorders: Degenerate Disk Disease, Osteoporosis, Back Injury, Chronic Back Pain HEENT HEENT Disorders: Chronic Ear Infection Loss of Vision: Denies Hearing Impairment: Denies Cancer Cancer: Cervical Psychosocial Behavioral Health Disorders: ADD/ADHD, Sleep Difficulties, Anxiety, Depression Blood Transfusions Adverse Reaction to a Blood Tr: No Physical Exam Vital Signs Vital Sign - Last 12Hours Capillary Refill : General Appearance: No Apparent Distress, WD/WN HEENT: PERRL/EOMI, Pharynx Normal Neck: Full Range of Motion, Normal Inspection, Non Tender, Supple Respiratory: Chest Non Tender, Lungs Clear, Normal Breath Sounds Cardiovascular: Regular Rate, Rhythm (tachycardia), No Edema, No Murmur, Normal Peripheral Pulses Gastrointestinal: Normal Bowel Sounds, Non Tender, Soft Extremity: Normal Capillary Refill, Normal Inspection, Non Tender, No Calf Tenderness, No Pedal Edema Neurologic/Psychiatric: Alert, Oriented x3, Normal Mood/Affect Skin: Normal Color, Warm/Dry Progress/Results/Core Measures Results/Orders Lab Results Laboratory Tests Test 05/30/17 22:30 05/31/17 00:07 Range/Units White Blood Count 8.7 4.3-11.0 10^3/uL Red Blood Count 4.25 L 4.35-5.85 10^6/uL Hemoglobin 13.2 11.5-16.0 G/DL Hematocrit 38 35-52 % Mean Corpuscular Volume 89 80-99 FL Mean Corpuscular Hemoglobin 31 25-34 PG Mean Corpuscular Hemoglobin Concent 35 32-36 G/DL Red Cell Distribution Width 12.7 10.0-14.5 % Platelet Count 213 130-400 10^3/uL Mean Platelet Volume 10.0 7.4-10.4 FL Neutrophils (%) (Auto) 49 42-75 % Lymphocytes (%) (Auto) 43 12-44 % Monocytes (%) (Auto) 7 0-12 % Eosinophils (%) (Auto) 1 0-10 % Basophils (%) (Auto) 1 0-10 % Neutrophils # (Auto) 4.3 1.8-7.8 X 10^3 Lymphocytes # (Auto) 3.7 1.0-4.0 X 10^3 Monocytes # (Auto) 0.6 0.0-1.0 X 10^3 Eosinophils # (Auto) 0.1 0.0-0.3 10^3/uL Basophils # (Auto) 0.0 0.0-0.1 10^3/uL Prothrombin Time 11.4 L 12.2-14.7 SEC INR Comment 0.8 0.8-1.4 Activated Partial Thromboplast Time 31 24-35 SEC Sodium Level 141 135-145 MMOL/L Potassium Level 3.4 L 3.6-5.0 MMOL/L Chloride Level 106 98-107 MMOL/L Carbon Dioxide Level 20 L 21-32 MMOL/L Anion Gap 15 H 5-14 MMOL/L Blood Urea Nitrogen 8 7-18 MG/DL Creatinine 0.86 0.60-1.30 MG/DL Estimat Glomerular Filtration Rate > 60 BUN/Creatinine Ratio 9 Glucose Level 112 H 70-105 MG/DL Calcium Level 9.3 8.5-10.1 MG/DL Magnesium Level 2.2 1.8-2.4 MG/DL Total Bilirubin 0.3 0.1-1.0 MG/DL Aspartate Amino Transf (AST/SGOT) 35 H 5-34 U/L Alanine Aminotransferase (ALT/SGPT) 42 0-55 U/L Alkaline Phosphatase 115 40-136 U/L Myoglobin 28.0 10.0-92.0 NG/ML Troponin I < 0.30 < 0.30 <0.30 NG/ML Total Protein 7.5 6.4-8.2 GM/DL Albumin 4.3 3.2-4.5 GM/DL My Orders Orders - MACARIO,KATINA J Cbc With Automated Diff (05/30/17 22:18) Magnesium (05/30/17 22:18) Chest 1 View, Ap/Pa Only (05/30/17 22:18) Ekg Tracing (05/30/17 22:18) Cardiac Profile 1 (05/30/17:18) Comprehensive Metabolic Panel (05/30/17 22:18) Myoglobin Serum (05/30/17 22:18) Protime With Inr (05/30/17 22:18) Partial Thromboplastin Time (05/30/17 22:18) O2 (05/30/17 22:18) Monitor-Rhythm Ecg Trace Only (05/30/17:18) Lipid Panel (05/31/17 06:00) Aspirin Chewable Tablet (Baby Aspirin Ch (05/30/17 22:30) Rx-Nitroglycerin Sl Tabs (Rx-Nitrostat S (05/30/17 22:30) Saline Lock/Iv-Start (05/30/17 22:18) Troponin I (05/31/17 22:40) Potassium Chloride (Tablet) (Klor Con Ta (05/30/17 23:15) Medications Given in ED Current Medications Medications Dose Ordered Sig/Gopal Route Start Time Stop Time Status Last Admin Dose Admin Aspirin 324 mg ONCE ONCE PO 05/30/17 22:30 05/30/17 22:31 DC 05/30/17 22:34 324 MG Nitroglycerin 0.4 mg PRN PRN SL 05/30/17 22:30 05/30/17 22:45 0.4 MG Potassium Chloride 10 meq ONCE ONCE PO 05/30/17 23:15 05/30/17 23:16 DC 05/30/17 23:19 10 MEQ Vital Signs/I&O Vital Sign - Last 12Hours 05/30/17 05/30/17 22:11 22:11 Temp 96.7 Pulse 113 Resp 20 B/P (MAP) 125/92 O2 Delivery Room Air Room Air Progress Note : Time: 22:32 Progress Note Her risk factors include age and no periods for over 10 years, hypertension, smoking maternal coronary history prior to age 63, hypercholesterolemia. ED ACS score of 2 points which is low cardiac risk. Safe for discharge if negative EKG and troponins 2. Heart score is 2 points which also is low risk and recommends negative EKG and troponins 2 and then discharge and follow up outpatient. ECG Initial ECG Impression Date: May 30, 2017 Initial ECG Impression Time: 22:21 Initial ECG Rate: 90 Initial ECG Rhythm: Normal Sinus Initial ECG Intervals: Normal Initial ECG Impression: Normal Initial ECG Comparisson: No Previous ECG Available Comment No evidence of ST elevation or depression. Diagnostic Imaging Diagonstic Imaging: Xray Plain Films/CT/US/NM/MRI: chest Comments Negative chest x-ray Reviewed: Reviewed by Me Departure Impression Impression: Primary Impression: Chest pain Qualified Codes: R07.2 - Precordial pain Additional Impression: Anxiety attack Disposition: 01 HOME, SELF-CARE Condition: Stable Departure-Patient Inst. Decision time for Depature: 01:03 Referrals: HOMER WILKINS DO (PCP) Primary Care Physician LEFTY WAY (Family) Primary Care Physician Patient Instructions: Chest Pain (DC) Add. Discharge Instructions: Call your doctor at her clinic at [phone] Friday morning and get some follow- up within the next few days. Further workup can be performed by your primary care physician outpatient. If you experience new or worsening symptoms you should return to the ER otherwise plan on seeing your doctor. All discharge instructions reviewed with patient and/or family. Voiced understanding. Copy Copies To 1: HOMER WILKINS TITUS J May 30, 2017 22:22
[2017-05-30] MEDS ORDERED: ASPIRIN 81 MG CHEW (CHILDREN'S ASA) PO ONE (22:30)
[2017-05-30] MEDS: RX-NITROGLYCERIN 0.4 MG TAB BTL 25'S SL PRN ×2 (22:34→22:45)
[2017-05-30 22:37] LABS: BASOPHILS % (AUTO) 1 % (0-10); EOSINOPHILS # (AUTO) 0.1 10^3/uL (0.0-0.3); EOSINOPHILS % (AUTO) 1 % (0-10); LYMPHOCYTES # (AUTO) 3.7 X 10^3 (1.0-4.0); LYMPHOCYTES % (AUTO) 43 % (12-44); MEAN CORPUSCULAR HEMOGLOBIN 31 PG (25-34); MEAN CORPUSCULAR HGB CONC 35 G/DL (32-36); MEAN CORPUSCULAR VOLUME 89 FL (80-99); MONOCYTES # (AUTO) 0.6 X 10^3 (0.0-1.0); MONOCYTES % (AUTO) 7 % (0-12); NEUTROPHILS # (AUTO) 4.3 X 10^3 (1.8-7.8); NEUTROPHILS % (AUTO) 49 % (42-75); PLATELET COUNT 213 10^3/uL (130-400); RED BLOOD COUNT 4.25 10^6/uL (4.35-5.85); RED CELL DISTRIBUTION WIDTH 12.7 % (10.0-14.5); WHITE BLOOD COUNT 8.7 10^3/uL (4.3-11.0)
[2017-05-30] MEDS ORDERED: CETI10TA17 PO (22:45)
[2017-05-30] MEDS ORDERED: TRIM100T PO (22:45)
[2017-05-30] MEDS ORDERED: HYDR12.5 PO (22:45)
[2017-05-30] MEDS ORDERED: SENN8.6T7 PO (22:45)
[2017-05-30 22:46] LABS: INR 0.8 (0.8-1.4); PROTHROMBIN TIME PATIENT 11.4 SEC (12.2-14.7)
[2017-05-30 22:57] LABS: ALANINE AMINOTRANSFERASE 42 U/L (0-55); ALBUMIN 4.3 GM/DL (3.2-4.5); ANION GAP 15 MMOL/L (5-14); ASPARTATE AMINO TRANSFERASE 35 U/L (5-34); BILIRUBIN,TOTAL 0.3 MG/DL (0.1-1.0); BLOOD UREA NITROGEN 8 MG/DL (7-18); BUN/CREATININE RATIO 9; CALCIUM 9.3 MG/DL (8.5-10.1); CARBON DIOXIDE 20 MMOL/L (21-32); CHLORIDE 106 MMOL/L (98-107); CREATININE SERUM 0.86 MG/DL (0.60-1.30); GFR ESTIMATED > 60; GLUCOSE 112 MG/DL (70-105); MAGNESIUM 2.2 MG/DL (1.8-2.4); POTASSIUM 3.4 MMOL/L (3.6-5.0); SODIUM 141 MMOL/L (135-145); TOTAL PROTEIN 7.5 GM/DL (6.4-8.2)
[2017-05-30] MEDS ORDERED: KCL 10 MEQ TAB (MICRO K) PO ONE (23:15)
[2017-05-31 01:09] VITALS: BP 105/78
--- NOTE | 2017-05-31 06:08 | Diagnostic Imaging Report ---
EXAM: CHEST 1 VIEW, AP/PA ONLY INDICATION: Chest pain. COMPARISON: Chest radiographs 05/24/2016. FINDINGS: Normal heart size and pulmonary vascularity. No focal pulmonary opacity, pleural effusion or pneumothorax. No acute osseous findings. No significant change. IMPRESSION: No acute cardiopulmonary findings. Dictated by: Dictated on workstation # [id number]
== END 2017-05-31 01:09 | disposition home or self-care (01) ==
LOC: EDUNIT# 22:00 → ER 22:02
DX: F41.0 Panic disorder [episodic paroxysmal anxiety] (principal); R07.2 Precordial pain; I10 Essential (primary) hypertension; K21.9 Gastro-esophageal reflux disease without esophagitis; M81.0 Age-related osteoporosis without current pathological fracture; F90.9 Attention-deficit hyperactivity disorder, unspecified type; F41.9 Anxiety disorder, unspecified; F32.9 Major depressive disorder, single episode, unspecified; F17.210 Nicotine dependence, cigarettes, uncomplicated; Z85.41 Personal history of malignant neoplasm of cervix uteri; Z87.09 Personal history of other diseases of the respiratory system; Z87.19 Personal history of other diseases of the digestive system; Z87.440 Personal history of urinary (tract) infections; Z90.710 Acquired absence of both cervix and uterus; Z82.49 Family history of ischemic heart disease and other diseases of the circulatory system
CPT/HCPCS: 36415; 71010; 80053; 83735; 83874; 84484; 85025; 85610; 85730; 93005; 93041

== ENCOUNTER → 2017-08-13 | Outpatient (CLI) | payer MEDICAID ==
[~2017-08-13] MED LIST changes: +CETI10TA17 PO; +HYDR12.5 PO
== END ==
LOC: CARD 12:52
PROVIDERS: ATTEND Internal Medicine Cardiovascular Disease
DX: R07.89 Other chest pain (principal); I10 Essential (primary) hypertension; E78.2 Mixed hyperlipidemia
CPT/HCPCS: 93017; 93306